=== PATIENT | female | born 1970 | race Two or more races ===

== ENCOUNTER 2025-01-11 09:48 | Outpatient (AMB) | payer MEDICAID, SELFPAY ==
--- NOTE | 2025-01-11 10:27 | XR_ITS ---
Examination: Bilateral knees 2 views Right lateral knee left lateral knee 2 views Bilateral axial knees single view TECHNIQUE: Bilateral AP knees standing single view, bilateral PA knees standing single view flexion Standing right lateral knee left lateral knee 2 views Bilateral axial knees single view total 5 views Date and time: January 11, 2025 10:40 AM INDICATIONS: Bilateral knee pain 3 months FINDINGS: Moderate osteopenia Severe narrowing, [id number] medial joint spaces bilaterally Bilateral moderate to advanced osteoarthritis patellofemoral joints No fractures IMPRESSION: Severe narrowing [id number] medial joint spaces bilaterally
--- NOTE | 2025-01-11 10:28 | ORTHONT_ITS ---
Vital signs 01/11/25 10:29 Height 1.63 m Height Method Stated Weight 77.734 kg Weight Measurement Method Standing Scale BMI 29.4 BP 129/85 H Blood Pressure Source Automatic Cuff Blood Pressure Location Left Upper Arm Position Sitting Respiration 18 Pulse 63 Pulse Source Monitor Temp 97.4 F Temp Source Temporal Artery Scan Pulse Oximetry (%) 96 Oxygen Delivery Method Room Air Med/Allergies Allergies & Medications Allergies No Known Allergies Allergy (Verified 01/11/25 10:30) Medication Reconciliation alprazolam 0.5 mg tablet 0.5 mg PO BID PRN Anxiety 10/11/18 [History Confirmed 07/05/22] levothyroxine 88 mcg tablet 88 mcg PO QDAY 10/11/18 [History Confirmed 07/05/22] acetaminophen 500 mg tablet (Tylenol Extra Strength) 500 mg PO QID PRN Pain 04/27/22 [History Confirmed 07/05/22] ferrous sulfate 325 mg (65 mg iron) tablet (FeroSul) 325 mg PO QDAY 04/27/22 [History Confirmed 07/05/22] omeprazole 20 mg capsule,delayed release 20 mg PO QDAY 04/27/22 [History Confirmed 07/05/22] cyclobenzaprine 10 mg tablet 10 mg PO TID PRN muscle spasm #20 tabs 02/25/23 [Rx] naproxen 500 mg tablet,delayed release 500 mg PO BID PRN pain #20 tabs 02/25/23 [Rx] diclofenac sodium 1 % topical gel 2 g topical QID 01/11/25 [History Confirmed 01/11/25] Exam Exam Patient is in no acute distress and is cooperative with the examination today. Breathing is nonlabored. In no respiratory distress. Bilateral extremities were evaluated and demonstrates sensation intact to light touch. Palpable pedal pulses are present. No significant edema is present. Bilateral hips were examined. The patient has no pain with log roll of the hips. Internal rotation to 30 degrees and external rotation to 30 degrees is painless. Negative FADIR. The left knee was examined. The left knee is in varus alignment. Range of motion from 0-115 degrees. Knee is stable to varus and valgus as well as AP translation with <5mm. Patient has a negative McMurrays. There is no pain with patellofemoral compression and no crepitus noted. The knee is tender to palpation medially. The right knee was also examined. The right knee is in varus alignment. Range of motion from 0-120 degrees. Knee is stable to varus and valgus as well as AP translation with <5mm. Patient has a negative McMurrays. There is no pain with patellofemoral compression and no crepitus noted. The knee is tender to palpation medially. I have an x-ray report from [facility] which says that there is mild to moderate arthritis. These are nonweightbearing films Assessment and Plan Problem List (1) Degenerative arthritis of knee, bilateral: Status: Acute Plan: Patient is a 54-year-old female with bilateral knee pain. She has no weightbearing x-rays. Will get weightbearing x-rays and she is on the anti-inflammatory already. She has tried some conservative treatment. We will see how she does with physical therapy. Will see her back for x-ray results Office Procedures GNS Level of Care Nursing/Assessment Patient Status: Initial/New Patient Nursing Assessment/Reassesment: Medication Reconciliation, Update PMH in EMR and Vital Signs Coordination of Care: Complex Care and Chronic Disease 1-5, Education Complex Pt/Fam, Consent,records obtained, informed consent, 1 Ins Authorization, Lab and Imaging orders, Results/Orders obtained and Staff clarify orders Special Needs: Language special needs New Patient Charge New Patient Point Assignment: 1124 New Patient Point Charge: COTTON TIER Level 4 ([id number]) MA Intake Visit Data Collection New Patient or Established: New Patient (never been to [facility]) Reason for Visit:: OA BL KNEE Seen by Clinical Staff ONLY (RN/MA): No Pharmacovigilance Safety Expert Required: Yes PCP or OBGYN visit in last 3 months: Yes Hx Now: No Do You Feel Safe at Home: Yes Authorities Contacted: N/A Questionairres Past Medical History Past Medical History Have you ever been diagnosed with any of the following: Neurological Problems Seizures: No Cardiology Problems Congestive Heart Failure: No Edema: No Cellulitis: No Hypertension: Yes Varicose Veins: Yes Respiratory Problems Chronic Obstructive Pulmonary Disease (COPD): No Asthma: No Pneumonia: No Tuberculosis: No Sleep Apnea: No Smoking: No Smoking Exposure: No Stomache/Intestinal Problems Hepatitis: No Gall Bladder Disease: No Gastroesophageal Reflux Disease: Yes Genital/Urinary Problems Renal Disease: No Kidney Stones: Yes Reproductive Problems Previous Pregnancies: Yes Endocrine Problems Diabetes Mellitus Type 1: No Diabetes Mellitus Type 2: No Hypothyroidism: Yes Blood Problems Anemia: Yes Sickle Cell Disease: No Psychologic Problems Bipolar Disorder: No Depression: Yes Anxiety: Yes Depression: Yes Other Problems Hospitalization: No Shingles: No Falls: No Blood Transfusions: No Blood Transfusion Reaction: No Anesthesia Reactions: No Organ Transplant: No Chemotherapy: No Radiation Therapy: No Hyperbaric Therapy: No MRSA: No Chicken Pox: Yes Measles: No Mumps: No Clostridium Difficile: No Cancer: No Surgical History Pacemaker: No Subjective Visit Visit for: new patient and knee Immunization / Flu Flu Vaccine in the Last 12 Months: Yes Flu Vaccine Exclusion Criteria: Already Received History of Present Illness Chief complaint: bl knee pain Patient is a pleasant 54-year-old female with bilateral knee pain. This been ongoing for several years. She has tried gel injections, anti-inflammatories including naproxen, and cortisone injections. She is about to start physical therapy in 4 days. Pain Pain level (0-10): 6 Pain duration: ALL DAY Pain location: inside (medial), outside (lateral), anterior and posterior Pain quality: sharp, dull and aching Pain timing: night, increases with activity and stairs Associated signs & symptoms: weakness Ambulatory data Ambulatory device: none Treatments Number of previous injections: 1 Improvement with previous injections: No Improvement with PT: No Improvement with NSAIDS: no Review of Systems Review of Systems: All systems negative unless otherwise noted in HPI.
[2025-01-11 10:29] VITALS: BP 129/85; PULSE 63; RESP 18; TEMP 36.3; O2SAT 96; BMI 29.4
== END 2025-01-11 10:32 | disposition home or self-care (01) ==
PROVIDERS: PCP Nurse Practitioner Family; Referring Provider Nurse Practitioner Family; Supervising Provider Orthopaedic Surgery Adult Reconstructive Orthopaedic Surgery; Visit Provider Orthopaedic Surgery Adult Reconstructive Orthopaedic Surgery
DX: M17.0 Bilateral primary osteoarthritis of knee (principal); M25.562 Pain in left knee; M25.561 Pain in right knee; I10 Essential (primary) hypertension; K21.9 Gastro-esophageal reflux disease without esophagitis; E03.9 Hypothyroidism, unspecified
CPT/HCPCS: 73564; 99204; G0463

== ENCOUNTER 2025-01-15 14:54 | Outpatient (RCR) | payer MEDICAID, SELFPAY ==
--- NOTE | 2025-01-15 15:29 | PT.OIERPT ---
PT OP Initial Eval Patient Information Outpatient Physical Therapy Treatment Date: 01/15/25 Visit Reasons: Pain in knee Medical Diagnosis: M17.9 Start of Care: 01/15/25 Date of Onset: 3 months ago Smoking Status Smoking Status: Never smoker Initial Assessment Subjective: Pt is 54 yr old cymro speaking female who reports intense B knee pain x3 months. The pain is constant and limits walking, squatting, stair and HH chore tolerances. Imaging: B standing knee Xray in EMR Severe narrowing [id number] medial joint spaces bilaterally Objective: B knee AROM: Flexion: 125 deg Extension : full SLR: 40 deg B Michael's: negative B Gait: antalgic Assessment: Pt presentation consistent with Xray that shows severe OA bone on bone of medial joint spaces. Pt not likely to benefit from skilled therapy to meet goals and has poor rehab potential. She will likely have more pain during and after therapy visits. Short Term and Senior Living Goals Eval and D/C Treatment Plan Eval and D/C Certification Dates: 01/15/25 to 01/20/25 Procedure Charges OP PT Eval Mod Complex 30 minutes: Yes
== END 2025-01-26 23:59 | disposition home or self-care (01) ==
LOC: CPTX 14:54
PROVIDERS: PCP Nurse Practitioner Family; Referring Provider Nurse Practitioner Family; Visit Provider Nurse Practitioner Family
DX: M25.562 Pain in left knee (principal); M25.561 Pain in right knee; R26.2 Difficulty in walking, not elsewhere classified; M17.0 Bilateral primary osteoarthritis of knee
CPT/HCPCS: 97162

== ENCOUNTER 2025-01-24 14:29 | Outpatient (AMB) | payer MEDICAID, SELFPAY ==
[2025-01-24 14:57] VITALS: BP 130/86; PULSE 59; RESP 17; TEMP 36; O2SAT 100; BMI 29.4
--- NOTE | 2025-01-24 14:57 | ORTHONT_ITS ---
Vital signs 01/24/25 14:57 Height 1.63 m Height Method Stated Weight 78.188 kg Weight Measurement Method Standing Scale BMI 29.4 BP 130/86 H Blood Pressure Source Automatic Cuff Blood Pressure Location Left Upper Arm Position Sitting Respiration 17 Pulse 59 L Pulse Source Monitor Temp 96.8 F Temp Source Temporal Artery Scan Pulse Oximetry (%) 100 Oxygen Delivery Method Room Air Med/Allergies Allergies & Medications Allergies No Known Allergies Allergy (Verified 01/24/25 14:58) Medication Reconciliation alprazolam 0.5 mg tablet 0.5 mg PO BID PRN Anxiety 10/11/18 [History Confirmed 01/24/25] levothyroxine 88 mcg tablet 88 mcg PO QDAY 10/11/18 [History Confirmed 01/24/25] acetaminophen 500 mg tablet (Tylenol Extra Strength) 500 mg PO QID PRN Pain 04/27/22 [History Confirmed 01/24/25] ferrous sulfate 325 mg (65 mg iron) tablet (FeroSul) 325 mg PO QDAY 04/27/22 [History Confirmed 01/24/25] omeprazole 20 mg capsule,delayed release 20 mg PO QDAY 04/27/22 [History Confirmed 01/24/25] cyclobenzaprine 10 mg tablet 10 mg PO TID PRN muscle spasm #20 tabs 02/25/23 [Rx Confirmed 01/24/25] naproxen 500 mg tablet,delayed release 500 mg PO BID PRN pain #20 tabs 02/25/23 [Rx Confirmed 01/24/25] diclofenac sodium 1 % topical gel 2 g topical QID 01/11/25 [History Confirmed 01/24/25] Exam Exam Patient is in no acute distress and is cooperative with the examination today. Breathing is nonlabored. In no respiratory distress. Bilateral extremities were evaluated and demonstrates sensation intact to light touch. Palpable pedal pulses are present. No significant edema is present. Bilateral hips were examined. The patient has no pain with log roll of the hips. Internal rotation to 30 degrees and external rotation to 30 degrees is painless. Negative FADIR. The left knee was examined. The left knee is in varus alignment. Range of motion from 0-115 degrees. Knee is stable to varus and valgus as well as AP translation with <5mm. Patient has a negative McMurrays. There is no pain with patellofemoral compression and no crepitus noted. The knee is tender to palpation medially. The right knee was also examined. The right knee is in varus alignment. Range of motion from 0-120 degrees. Knee is stable to varus and valgus as well as AP translation with <5mm. Patient has a negative McMurrays. There is no pain with patellofemoral compression and no crepitus noted. The knee is tender to palpation medially. Xrays demonstrate complete joint space narrowing bilaterally. There is significant varus deformity on the xrays from 01/11/2025 Assessment and Plan Problem List (1) Degenerative arthritis of knee, bilateral: Status: Acute Plan: Patient is a 54-year-old female with bilateral knee pain that is of approximately equal severity. She has tried significant conservative treatment at this point including pt, nsaids, and gel injections. We thus discussed total knee replacement as a reasonable option and we would start on the left. The nature and purpose of the total knee replacement, alternative method(s) of treatment, the material risks involved, and the possibility of complications were fully explained to the patient. The patient does NOT have any of the following contraindications to TKA: - Active infection of the knee joint, OR - Active systemic bacteremia, OR - Active skin infection or open wound at surgical site, OR - Neuropathic arthritis, OR - Severe, rapidly progressive neurological disease, OR - Severe medical condition that makes risks of surgery outweigh the potential benefit The patient was told the most common risks and complications associated with a total knee replacement include, but are not limited to: blood clots in the leg, fatal pulmonary embolism, dislocation of the prosthesis, intraoperative and postoperative fractures of the femur or tibia, infection, failure of the prosthesis or grafting materials, complications from anesthesia, reactions to blood transfusions, postoperative leg length inequality, instability of the knee replacement, nerve damage or injury, vascular injury, delayed wound healing, infection, other injury or even . In addition, there are risks associated with anesthesia given during this operation. Also, the patient was told that after undergoing a total knee replacement there may still be persistent pain or disability. The patient was informed that the success of this operation in part depends upon the mechanical devices which are going to be implanted and that these devices can fail or malfunction, and may need to be repaired or replaced and there are no guarantees as to the longevity of this device or its parts and that it or its parts could fail prematurely. The patient was also notified that during the course of surgery, there may be a need to use bone graft from donors, and that any bone graft used will be carefully screened for communicable diseases, including AIDS, hepatitis, Rosendo-Creutzfeldt, or other diseases, but despite the screening procedures, th ere is a small chance that they could contract one of these diseases. Finally, the patient was asked to follow completely and fully with all advice and recommended treatments, and that recovery and ultimate outcome are affected by their compliance with recommended treatment. We discussed the risks, benefits and treatment alternatives, and the patient is interested in proceeding with surgery. We will try to set this up as expeditiously as possible. Office Procedures GNS Level of Care Nursing/Assessment Patient Status: Established Patient Nursing Assessment/Reassesment: Medication Reconciliation, Update PMH in EMR and Vital Signs Coordination of Care: Complex Care and Chronic Disease 1-5, Education Complex Pt/Fam, Consent,records obtained, informed consent, Results/Orders obtained and Staff clarify orders Special Needs: Language special needs (CHINESE ) Established Patient Charge Established Patient Point Assignment: 95 Established Patient Point Charge: EP Level 3 (80-115) MA Intake Visit Data Collection New Patient or Established: Established Patient (seen at [facility] within 3 years) Reason for Visit:: FU BILAT KNEE XRAY RESULT Seen by Clinical Staff ONLY (RN/MA): No Portfolio Administrator Required: Yes PCP or OBGYN visit in last 3 months: Yes Hx Now: No Do You Feel Safe at Home: Yes Authorities Contacted: N/A Questionairres Past Medical History Past Medical History Have you ever been diagnosed with any of the following: Neurological Problems Seizures: No Cardiology Problems Congestive Heart Failure: No Edema: No Cellulitis: No Hypertension: Yes Varicose Veins: Yes Respiratory Problems Chronic Obstructive Pulmonary Disease (COPD): No Asthma: No Pneumonia: No Tuberculosis: No Sleep Apnea: No Smoking: No Smoking Exposure: No Stomache/Intestinal Problems Hepatitis: No Gall Bladder Disease: No Gastroesophageal Reflux Disease: Yes Genital/Urinary Problems Renal Disease: No Kidney Stones: Yes Reproductive Problems Previous Pregnancies: Yes Endocrine Problems Diabetes Mellitus Type 1: No Diabetes Mellitus Type 2: No Hypothyroidism: Yes Blood Problems Anemia: Yes Sickle Cell Disease: No Psychologic Problems Bipolar Disorder: No Depression: Yes Anxiety: Yes Depression: Yes Other Problems Hospitalization: No Shingles: No Falls: No Blood Transfusions: No Blood Transfusion Reaction: No Anesthesia Reactions: No Organ Transplant: No Chemotherapy: No Radiation Therapy: No Hyperbaric Therapy: No MRSA: No Chicken Pox: Yes Measles: No Mumps: No Clostridium Difficile: No Cancer: No Surgical History Pacemaker: No Subjective Visit Visit for: follow up visit and knee (BILATEAL KNEE XRAYS ) Immunization / Flu Flu Vaccine in the Last 12 Months: Yes Flu Vaccine Exclusion Criteria: Already Received History of Present Illness Chief complaint: bl knee pain Patient is a pleasant 54-year-old female with bilateral knee pain. This been ongoing for several years. She has tried gel injections, anti-inflammatories including naproxen, and cortisone injections. She has tried PT and reports significant knee pain bilaterally. Personal History Red flag PMH: none Pain Pain level (0-10): 8 Pain duration: 3 MONTHS Pain location: anterior Pain quality: sharp, shocking, electric and tingling Pain timing: night and increases with activity Associated signs & symptoms: weakness and stiffness Ambulatory data Ambulatory device: none Walking distance (minutes): 1 Treatments Number of previous injections: 1 Improvement with previous injections: No Number of Physical Therapy sessions: 0 Improvement with PT: No Improvement with NSAIDS: n/a Review of Systems Review of Systems: All systems negative unless otherwise noted in HPI.
== END 2025-01-24 15:25 | disposition home or self-care (01) ==
LOC: HODSRG 14:29
PROVIDERS: PCP Nurse Practitioner Family; Referring Provider Nurse Practitioner Family; Supervising Provider Orthopaedic Surgery Adult Reconstructive Orthopaedic Surgery; Visit Provider Orthopaedic Surgery Adult Reconstructive Orthopaedic Surgery
DX: M17.0 Bilateral primary osteoarthritis of knee (principal)
CPT/HCPCS: 99213; G0463

== ENCOUNTER → 2025-02-20 | Outpatient (CLI) | payer MEDICAID, SELFPAY ==
--- NOTE | 2025-02-20 09:30 | XR_ITS ---
Examination: CT left lower extremity, without contrast. 2-D sagittal reconstructions. 2-D coronal reconstructions. 3-D reconstructions. Date and time of exam:February 20, 2025 1034 hours INDICATIONS: Diagnosis unilateral left knee osteoarthritis left knee pain 3 months CTDI: vol (mGy):10.8 DLP: (mGycm):798 Technique: Multiple 1.25 mm axial sections of the left lower extremity without intravenous contrast have been obtained. 2-D sagittal and coronal reconstructions have been obtained. 3-D reconstructions have been obtained. Low dose protocols were performed. One or more of the following dose reduction techniques were used; automated exposure control, adjustment of the mA and/or KV according to patient size, use of iterative reconstruction technique. Findings: Moderate osteopenia Mild to moderate narrowing left hip joint No left hip fracture or dislocation No avascular necrosis Severe narrowing medial joint space left knee with subarticular sclerosis and osteophyte formation Significant osteoarthritis lateral joint space No fracture IMPRESSION: Severe narrowing medial joint space left knee
== END | disposition home or self-care (01) ==
LOC: CCTX 08:55
PROVIDERS: PCP Nurse Practitioner Family; Referring Provider Orthopaedic Surgery Adult Reconstructive Orthopaedic Surgery; Visit Provider Orthopaedic Surgery Adult Reconstructive Orthopaedic Surgery
DX: M25.862 Other specified joint disorders, left knee (principal)
CPT/HCPCS: 73700

== ENCOUNTER 2025-02-21 14:16 | Outpatient (AMB) | payer MEDICAID, SELFPAY ==
[2025-02-21 14:32] VITALS: BP 128/78; PULSE 72; RESP 17; TEMP 36.8; O2SAT 95; BMI 28.3
--- NOTE | 2025-02-21 14:32 | PD.ORTHCLVIS ---
Vital signs 02/21/25 14:32 Height 1.63 m Height Method Stated Weight 75.296 kg Weight Measurement Method Standing Scale BMI 28.3 BP 128/78 Blood Pressure Source Automatic Cuff Blood Pressure Location Left Upper Arm Position Sitting Respiration 17 Pulse 72 Pulse Source Monitor Temp 98.3 F Temp Source Temporal Artery Scan Pulse Oximetry (%) 95 Oxygen Delivery Method Room Air Med/Allergies Allergies & Medications Allergies No Known Allergies Allergy (Verified 02/21/25 14:32) Medication Reconciliation alprazolam 0.5 mg tablet 0.5 mg PO BID PRN Anxiety 10/11/18 [History Confirmed 02/21/25] levothyroxine 88 mcg tablet 88 mcg PO QDAY 10/11/18 [History Confirmed 02/21/25] acetaminophen 500 mg tablet (Tylenol Extra Strength) 500 mg PO QID PRN Pain 04/27/22 [History Confirmed 02/21/25] ferrous sulfate 325 mg (65 mg iron) tablet (FeroSul) 325 mg PO QDAY 04/27/22 [History Confirmed 02/21/25] omeprazole 20 mg capsule,delayed release 20 mg PO QDAY 04/27/22 [History Confirmed 02/21/25] cyclobenzaprine 10 mg tablet 10 mg PO TID PRN muscle spasm #20 tabs 02/25/23 [Rx Confirmed 02/21/25] naproxen 500 mg tablet,delayed release 500 mg PO BID PRN pain #20 tabs 02/25/23 [Rx Confirmed 02/21/25] diclofenac sodium 1 % topical gel 2 g topical QID 01/11/25 [History Confirmed 02/21/25] Exam Exam Patient is in no acute distress and is cooperative with the examination today. Breathing is nonlabored. In no respiratory distress. Bilateral extremities were evaluated and demonstrates sensation intact to light touch. Palpable pedal pulses are present. No significant edema is present. Bilateral hips were examined. The patient has no pain with log roll of the hips. Internal rotation to 30 degrees and external rotation to 30 degrees is painless. Negative FADIR. The left knee was examined. The left knee is in varus alignment. Range of motion from 0-115 degrees. Knee is stable to varus and valgus as well as AP translation with <5mm. Patient has a negative McMurrays. There is no pain with patellofemoral compression and no crepitus noted. The knee is tender to palpation medially. The right knee was also examined. The right knee is in varus alignment. Range of motion from 0-120 degrees. Knee is stable to varus and valgus as well as AP translation with <5mm. Patient has a negative McMurrays. There is no pain with patellofemoral compression and no crepitus noted. The knee is tender to palpation medially. Xrays demonstrate complete joint space narrowing bilaterally. There is significant varus deformity on the xrays from 01/11/2025 Assessment and Plan Problem List (1) Degenerative arthritis of knee, bilateral: Status: Acute Plan: Patient is a 54-year-old female with bilateral knee pain that is of approximately equal severity. She has tried significant conservative treatment at this point including pt, nsaids, and gel injections. We thus discussed total knee replacement as a reasonable option and we would start on the left. The nature and purpose of the total knee replacement, alternative method(s) of treatment, the material risks involved, and the possibility of complications were fully explained to the patient. The patient does NOT have any of the following contraindications to TKA: - Active infection of the knee joint, OR - Active systemic bacteremia, OR - Active skin infection or open wound at surgical site, OR - Neuropathic arthritis, OR - Severe, rapidly progressive neurological disease, OR - Severe medical condition that makes risks of surgery outweigh the potential benefit The patient was told the most common risks and complications associated with a total knee replacement include, but are not limited to: blood clots in the leg, fatal pulmonary embolism, dislocation of the prosthesis, intraoperative and postoperative fractures of the femur or tibia, infection, failure of the prosthesis or grafting materials, complications from anesthesia, reactions to blood transfusions, postoperative leg length inequality, instability of the knee replacement, nerve damage or injury, vascular injury, delayed wound healing, infection, other injury or even . In addition, there are risks associated with anesthesia given during this operation. Also, the patient was told that after undergoing a total knee replacement there may still be persistent pain or disability. The patient was informed that the success of this operation in part depends upon the mechanical devices which are going to be implanted and that these devices can fail or malfunction, and may need to be repaired or replaced and there are no guarantees as to the longevity of this device or its parts and that it or its parts could fail prematurely. The patient was also notified that during the course of surgery, there may be a need to use bone graft from donors, and that any bone graft used will be carefully screened for communicable diseases, including AIDS, hepatitis, Rosendo-Creutzfeldt, or other diseases, but despite the screening procedures, there is a small chance that they could contract one of these diseases. Finally, the patient was asked to follow completely and fully with all advice and recommended treatments, and that recovery and ultimate outcome are affected by their compliance with recommended treatment. We discussed the risks, benefits and treatment alternatives, and the patient is interested in proceeding with surgery. We will try to set this up as expeditiously as possible. Office Procedures GNS Level of Care Nursing/Assessment Patient Status: Established Patient Nursing Assessment/Reassesment: Medication Reconciliation, Update PMH in EMR and Vital Signs Coordination of Care: Complex Care and Chronic Disease 1-5, Education Complex Pt/Fam, Consent,records obtained, informed consent, Results/Orders obtained and Staff clarify orders Special Needs: Language special needs (LUX[place] ) Established Patient Charge Established Patient Point Assignment: 95 Established Patient Point Charge: EP Level 3 (80-115) MA Intake Visit Data Collection New Patient or Established: Established Patient (seen at [facility] within 3 years) Reason for Visit:: PRE OP LEFT KNEE Seen by Clinical Staff ONLY (RN/MA): No Floor Layer Required: Yes PCP or OBGYN visit in last 3 months: Yes Hx Now: No Do You Feel Safe at Home: Yes Authorities Contacted: N/A Questionairres Past Medical History Past Medical History Have you ever been diagnosed with any of the following: Neurological Problems Seizures: No Cardiology Problems Congestive Heart Failure: No Edema: No Cellulitis: No Hypertension: Yes Varicose Veins: Yes Respiratory Problems Chronic Obstructive Pulmonary Disease (COPD): No Asthma: No Pneumonia: No Tuberculosis: No Sleep Apnea: No Smoking: No Smoking Exposure: No Stomache/Intestinal Problems Hepatitis: No Gall Bladder Disease: No Gastroesophageal Reflux Disease: Yes Genital/Urinary Problems Renal Disease: No Kidney Stones: Yes Reproductive Problems Previous Pregnancies: Yes Endocrine Problems Diabetes Mellitus Type 1: No Diabetes Mellitus Type 2: No Hypothyroidism: Yes Blood Problems Anemia: Yes Sickle Cell Disease: No Psychologic Problems Bipolar Disorder: No Depression: Yes Anxiety: Yes Depression: Yes Other Problems Hospitalization: No Shingles: No Falls: No Blood Transfusions: No Blood Transfusion Reaction: No Anesthesia Reactions: No Organ Transplant: No Chemotherapy: No Radiation Therapy: No Hyperbaric Therapy: No MRSA: No Chicken Pox: Yes Measles: No Mumps: No Clostridium Difficile: No Cancer: No Surgical History Pacemaker: No Subjective Visit Visit for: follow up visit and knee (LEFT KNEE ) Immunization / Flu Flu Vaccine in the Last 12 Months: Yes Flu Vaccine Exclusion Criteria: Already Received History of Present Illness Chief complaint: bl knee pain Patient is a pleasant 54-year-old female with bilateral knee pain. This been ongoing for several years. She has tried gel injections, anti-inflammatories including naproxen, and cortisone injections. She has tried PT and reports significant knee pain bilaterally. Personal History Red flag PMH: none Pain Pain level (0-10): 8 Pain duration: 3 MONTHS Pain location: anterior Pain quality: sharp and other (specify) (SWELLING) Pain timing: increases with activity Associated signs & symptoms: numbness, weakness and stiffness Ambulatory data Ambulatory device: none Walking distance (minutes): 1 Treatments Number of previous injections: 1 Improvement with previous injections: No Number of Physical Therapy sessions: 0 Improvement with PT: No Improvement with NSAIDS: n/a Review of Systems Review of Systems: All systems negative unless otherwise noted in HPI.
== END 2025-02-21 14:51 | disposition home or self-care (01) ==
PROVIDERS: PCP Nurse Practitioner Family; Referring Provider Nurse Practitioner Family; Supervising Provider Orthopaedic Surgery Adult Reconstructive Orthopaedic Surgery; Visit Provider Orthopaedic Surgery Adult Reconstructive Orthopaedic Surgery
DX: M17.0 Bilateral primary osteoarthritis of knee (principal); M25.562 Pain in left knee; M25.561 Pain in right knee; I10 Essential (primary) hypertension; K21.9 Gastro-esophageal reflux disease without esophagitis; E03.9 Hypothyroidism, unspecified
CPT/HCPCS: 99213; G0463

== ENCOUNTER 2025-02-25 08:10 | Day surgery (SDC) | payer MEDICAID, SELFPAY ==
--- NOTE | 2025-02-22 06:00 | EKG_ITS ---
[facility] Test Date: 2025-02-22 Pat Name: MAIKEL Carrpartment: Room: - Gender: Female Tiler: [facility] : 1970 Requested By: Mateus Singh Order Number: [id number] Reading MD: Mateus Singh Measurements Intervals [place] Rate: 69 P: 51 SC: 192 QRS: 0 QRSD: 98 T: 61 QT: 408 QTc: 439 Interpretive Statements SINUS RHYTHM NONSPECIFIC T-WAVE ABNORMALITY Compared to ECG 02/25/2023 19:27:29 T-wave abnormality now present /store/S0/[id number]/ecg/[id number].pdf
[2025-02-22 08:04] VITALS: BMI 30.1
[2025-02-22 08:58] LABS: Basophils % (Auto) 1 % (0-2.5); Eosinophils # (Auto) 0.1 Thou/mm3 (0.0-0.5); Eosinophils % (Auto) 2 % (0-10); Hematocrit 38.6 % (36.0-46.0); Hemoglobin 12.9 g/dL (12.0-16.0); Immature Granulocytes % (Auto) 0 % (0-0); Immature Granulocytes Auto 0.02 Thou/mm3 (0.00-0.00); Lymphocytes # (Auto) 1.9 Thou/mm3 (1.0-4.8); Lymphocytes % (Auto) 32 % (10-50); Mean Corpuscular HGB Conc 33.4 g/dl (31.0-37.0); Mean Corpuscular Hemoglobin 30.4 pg (25.0-35.0); Mean Corpuscular Volume 91 fL (80-100); Monocytes # (Auto) 0.5 Thou/mm3 (0.0-0.8); Monocytes % (Auto) 9 % (0-12); Neutrophils # (Auto) 3.4 Thou/mm3 (1.8-7.7); Neutrophils % (Auto) 56 % (37-80); Nucleated Red Blood Cell % 0 /100 WBC (0); Platelet Count 272 Thou/mm3 (140-440); RDW Standard Deviation 41.2 fL (36.4-46.3); Red Blood Count 4.24 Miln/mm3 (4.00-5.20)
[2025-02-22 09:14] LABS: Alanine Aminotransferase 25 U/L (10-49); Alkaline Phosphatase 77 U/L (46-116); Anion Gap 8 (7-16); Aspartate Amino Transferase 22 U/L (0-34); BUN/Creatinine Ratio 11 Ratio (12-20); Bilirubin,Total 0.7 mg/dL (0.3-1.2); Blood Urea Nitrogen 8 mg/dL (9-23); Calcium 8.8 mg/dL (8.3-10.6); Calcium (Corrected) 8.8 mg/dL (8.5-10.1); Carbon Dioxide 27.9 mMol/L (20.0-31.0); Chloride 104 mMol/L (98-107); Creatinine (Component) 0.7 mg/dL (0.6-1.3); Estimated Creatinine Clearance 89.3 mL/min (>60); Glucose 126 mg/dL (74-106); Osmolality,Calculated 279 (275-295); Potassium 3.7 mMol/L (3.4-5.1); Sodium 140 mMol/L (136-145); eGFR > 60 See Note
[2025-02-22 09:16] LABS: Partial Thromboplastin Time 29.1 Seconds (22.0-36.0); Prothrombin Time 10.9 Seconds (9.0-12.2)
[2025-02-25] VITALS (20 sets, daily range): BP systolic 121–150; BP diastolic 75–99; PULSE 64–94; RESP 12–20; TEMP 36.3–36.9; O2SAT 95–100; BMI 28.9
--- NOTE | 2025-02-25 09:10 | SUR.PREOP ---
Patient expressed gratitude for prayer before their procedure.
[2025-02-25] MEDS: PREGABALIN 75 MG CAPSULE PO (09:24)
[2025-02-25] MEDS: ACETAMINOPHEN 325 MG TABLET 650 MG PO (09:24)
[2025-02-25] MEDS: MELOXICAM 7.5 MG TABLET PO (09:24)
[2025-02-25] MEDS: RINGERS LACTATED 1000 ML 1,000 ML 20 ML IV (09:28)
--- NOTE | 2025-02-25 12:11 | ESOP_ITS ---
Date of Procedure 02/25/25 Pre Op Diagnosis left knee osteoarthritis Post Op Diagnosis left knee osteoarthritis Procedure left total knee replacement bridget Findings full thickness cartilage loss and osteophytes Procedure Description Indication: The patient is a [67] year old who has a long history of left knee pain. X-rays show degenerative arthritis involving the knee. Over the past several years the patient has had increasing pain, progressive limitation in function. He has failed conservative measures including activity modification, physical therapy, injections, anti-inflammatories, and assistive devices. After a lengthy discussion of the risks and benefits, the patient presents now for total knee replacement. The nature and purpose of the total knee replacement, alternative method(s) of treatment, the material risks involved, and the possibility of complications were fully explained to the patient. The patient was told the most common risks and complications associated with a total knee replacement include, but are not limited to blood clots in the leg, fatal pulmonary embolism, dislocation of the prosthesis, intraoperative and postoperative fractures of the femur or tibia, infection, failure of the prosthesis or grafting materials, complications from anesthesia, reactions to blood transfusions, postoperative leg length inequality, instability of the knee replacement, nerve damage or injury, vascular injury, delayed wound healing, infections, other injury or even . In addition, there are risks associated with anesthesia given during this operation, temporary or permanent numbness on the skin lateral to the incision can be a complication unique to total knee surgery, and kneeling can be painful after knee replacement surgery. Also, the patient was told that after undergoing a total knee replacement there may still be pain or disability. We discussed with the patient that we will be using a robot-assisted technology. We discussed that there is a possibility of converting to manual instrumentation. The patient was informed that the success of this operation in part depends upon the mechanical devices which are going to be implanted and that these devices can fail or malfunction, and may need to be repaired or replaced and there are no guarantees as to the longevity of this device or its part and that it or its parts could fail prematurely. Finally, the patient was asked to follow completely and fully with all advice and recommended treatments, and that recovery and ultimate outcome are affected by their compliance with recommended treatment. Surgical technique: Patient was marked and consented in the pre-operative area. The patient was brought to the operating room and placed on the operating table in a supine position. Prior to positioning, a timeout procedure was performed between the surgeon, the anesthesiologist, and the nursing staff where the patient and the operative side were identified and confirmed. After adequate general anesthetic was obtained, the left lower extremity was prepped and draped in the usual sterile fashion. A weight based dose of Cefazolin were administered within 1 hour prior to incision. The robot was preregistered and calirated before the incision. The extremity was exsanguinated with an esmarch badge and tourniquet inflated to 250mmHg. A midline incision was made. A median parapatellar arthrotomy was made. The patella was subluxed laterally. A medial release was performed to expose the medial tibia. His femoral and tibial pins were placed through an intra incisional manner for both cases. Every effort was made to ensure that the distalmost aspect of the pin was hung in the second cortex. The arrays were then tightened several times to ensure that it was fixed for the remainder of the case. Both femoral and tibial checkpoints were then placed. We then went through the registration process of the bone. We then assessed the knee deformity and attempted to correct it. We also used the robot to aid in judging laxity in both extension and flexion. Final based on laxity and alignment we changed the preoperative assessment to obtain proper proper implant positioning and to correct deformity. Attention was then placed to the tibia. We made a tibial cut using the robot ensuring that both the MCL and the patella tendon were protected with retractors. We then went to the femur and made the posterior cut followed by the anterior cut and the anterior chamfer. The bone was then removed and we made a distal femur cut and a posterior chamfer cut. We verified all cuts. A trial reduction was performed with a size 3 femoral component and a size 3 keeled tibial component. The patella tracked centrally, and no lateral retinacular release was necessary. The trial implants were removed. The arrays, pins, and checkpoints were all removed. We performed a verification that all pins were removed. The cut bone surfaces were lavaged. A size 3 left femoral component, a size 3 keeled tibial component were impacted into position. The knee was felt to be well balanced in the sagittal and coronal plane. The final 3x10 mm cruciate- substituting articular insert was impacted into the tibial tray. The knee was brought out to full extension, flexed up to 120 degrees. It was stable to varus and valgus stress and appropriately balanced in flexion and extension. The wounds were copiously irrigated following deflation of tourniquet. The medial retinaculum was reapproximated with #1 vicryl and quill. The subcutaneous tissues were closed with 0 and 2-0 interrupted Vicryl. The skin was closed with 3-0 Monofilament V loc suture. A sterile dressing was applied. The patient was transferred to a bed and brought to recovery in stable condition. The patient tolerated the procedure well. There were no intraoperative complications. Sponge and needle counts were correct times 2. As the attending surgeon, I rama I was present and performed the entire operation. Grafts/Implants Size 3 CR Femur Size 3 Tibia 10mm poly CS Anesthesia spinal Implants flex Pathology / specimen None Pathology comment: none Estimated Blood Loss 150 Surgeon Dano Rowley MD Surgical Staff Operation Date: 02/25/25 13:00 Case Staff Anesthesiologist: Jeff Grover RN First Assistant: Lauren Greene
--- NOTE | 2025-02-25 12:17 | XR_ITS ---
Examination: Left knee 2 views Technique one AP lateral left knee 2 views Date and time: February 25, 2025 1242 hours INDICATIONS: Postop knee replacement. FINDINGS: Total left knee arthroplasty. Satisfactory alignment Moderate osteopenia No fracture IMPRESSION: Total left knee arthroplasty with satisfactory alignment
--- NOTE | 2025-02-25 12:33 | SUR.PHASEI ---
1233 Patient arrived to recovery resting comfortably in [facility] on oxygen 6L via oxy mask, breathing unlabored, vital signs stable, dressing intact to left knee; prineo, telfa, abd, webril, sotero wraps; no bleeding noted, bilateral dorsalis pedis pulses present when palpated, patient has good circulation to left lower extremity; skin warm to touch and normal color for patient, post spinal anesthesia assessment via ice; patient has dermatome sensation at R66-bctqulral, will continue to monitor, report received from Dr. Grover and Savanna ROY/Amada ROY
--- NOTE | 2025-02-25 12:47 | SUR.PHASEI ---
1247 XRAY complete per MD order
--- NOTE | 2025-02-25 13:35 | SUR.PHASEII ---
1315 patients at bedside
--- NOTE | 2025-02-25 13:44 | SUR.PHASEII ---
patient eating jello and drinking apple juice tolerating well
--- NOTE | 2025-02-25 14:15 | SUR.PHASEII ---
[id number] Dr[address] Grover for Ofirmev 1gm via IV for pain- patient expresses she has a headache
[2025-02-25] MEDS: ACETAMINOPHEN IVPB 1,000 MG/100 ML VIAL 250 MG IV (14:21)
--- NOTE | 2025-02-25 14:34 | SUR.PHASEII ---
patient post spinal anesthesia complete patient has dermatome sensation at S2-perineum
--- NOTE | 2025-02-25 15:25 | SUR.PHASEII ---
1525 patient attempted to use the restroom, unable to void, will ambulate patient back to bed with physical therapy and encourage fluids and patient to eat a meal
--- NOTE | 2025-02-25 15:32 | SUR.PHASEII ---
1532 patient cleared by Physical therapy Jas to proceed with discharge
--- NOTE | 2025-02-25 16:29 | SUR.PHASEII ---
pt awake and alert, breathing unlabored on room air. v/s stable. pt dresing to left lower extremity cdi. report received from Rachelle Desouza Rn.
--- NOTE | 2025-02-25 16:29 | SUR.PHASEII ---
1540 Patient hooked up to Gogoyoko, unable to void, complaining of pain in her bladder [address] Rowley via telephone, no answer [address] Rowley via telephone, no answer [address] Grover via telephone patient unable to void, bladder scanned +999ml urine in bladder on scan, telephone order read-back to straight catheterize patient 1555 Dr. Rowley returned called, staff made him aware of patients condition and unable to void, and this writer producer was currently straight catheterizing patient 1603 750 drained from bladder, patient tolerated well, denies pain to her bladder 1605 Bladder scanned 545ml urine in bladder [address] Rowley via telephone, no answer 1613 Dr. Rowley made aware bladder drained 750ml via straight catheterize, bladder scan and 545ml urine remained in bladder, Dr. Rowley stated, Thats ok, patient just needs to void prior to discharge, given her an 1 1/2 and then call me 1620 Patient sitting up in bed with her son at bedside, eating a sandwich from the cafeteria 1629 Report given to Xavier ROY to assume care over patient
--- NOTE | 2025-02-25 18:00 | SUR.PHASEII ---
pt awake and alert, breathing unlabored on room air. v/s stable. pt dressing to left lower extremity cdi. pt cleared by physical therapist Chris. d/c instructions given by Rachelle Desouza Rn, pt confirmed all questions were answered. pt able to urinate prior to d/c. pt d/c via wheelchair with all belongings.
== END 2025-02-25 18:00 | disposition home or self-care (01) ==
PROVIDERS: Anesthesiology; PCP Nurse Practitioner Family; Referring Provider Orthopaedic Surgery Adult Reconstructive Orthopaedic Surgery; Visit Provider Orthopaedic Surgery Adult Reconstructive Orthopaedic Surgery
PROC: (CPT 27447; principal; 2025-02-25 12:45)
DX: M17.12 Unilateral primary osteoarthritis, left knee (principal); M25.762 Osteophyte, left knee; I10 Essential (primary) hypertension; E03.9 Hypothyroidism, unspecified; K21.9 Gastro-esophageal reflux disease without esophagitis; Z01.810 Encounter for preprocedural cardiovascular examination; Z79.890 Hormone replacement therapy; Z79.899 Other long term (current) drug therapy
CPT/HCPCS: 27447; 20985; 36415; 73560; 80053; 85025; 85610; 85730; 93005; 97163; A4217; C1713; C1776; J0131; J0690; J1100; J1885; J2250; J2405; J2704; J2795; J3010; J3490; J7120; J7999; A4648; A4649; A9270

== ENCOUNTER 2025-03-08 10:03 | Outpatient (AMB) | payer MEDICAID, SELFPAY ==
--- NOTE | 2025-03-08 10:30 | PD.ORTHCLVIS ---
Vital signs 03/08/25 10:36 Height 1.6 m Height Method Measured Weight 74.446 kg Weight Measurement Method Standing Scale BMI 29.0 BP 106/70 Blood Pressure Source Automatic Cuff Blood Pressure Location Right Upper Arm Position Sitting Respiration 16 Pulse 90 Pulse Source Monitor Temp 97.8 F Temp Source Temporal Artery Scan Pulse Oximetry (%) 95 Oxygen Delivery Method Room Air Med/Allergies Allergies & Medications Allergies No Known Allergies Allergy (Verified 03/08/25 10:48) Medication Reconciliation levothyroxine 88 mcg tablet 88 mcg PO QDAY 10/11/18 [History Confirmed 03/08/25] omeprazole 20 mg capsule,delayed release 20 mg PO QDAY 04/27/22 [History Confirmed 03/08/25] clonazepam 0.5 mg tablet 0.5 mg PO TID 02/22/25 [History Confirmed 03/08/25] estradiol 2 mg tablet 2 mg PO DAILY 02/22/25 [History Confirmed 03/08/25] ibuprofen 800 mg tablet 800 mg PO Q12H PRN pain 02/22/25 [History Confirmed 03/08/25] sertraline 25 mg tablet (Zoloft) 25 mg PO QDAY 02/22/25 [History Confirmed 03/08/25] acetaminophen 500 mg tablet (Acetaminophen Extra Strength) 1,000 mg (2 x 500 mg) PO Q6H PRN pain #90 tabs 02/25/25 [Rx Confirmed 03/08/25] aspirin 81 mg tablet,delayed release 81 mg PO BID #60 tabs 02/25/25 [Rx Confirmed 03/08/25] doxycycline hyclate 100 mg tablet 100 mg PO BID #14 tabs 02/25/25 [Rx Confirmed 03/08/25] gabapentin 300 mg capsule 300 mg PO .qhs #30 caps 02/25/25 [Rx Confirmed 03/08/25] oxycodone 5 mg tablet 5 mg PO Q6H PRN pain #28 tabs 02/25/25 [Rx Confirmed 03/08/25] sennosides 8.6 mg-docusate sodium 50 mg tablet (Senna-S) 1 tab-cap PO QDAY #30 tabs 02/25/25 [Rx Confirmed 03/08/25] diphenhydramine HCl 25 mg tablet (Allergy (diphenhydramine)) 25 mg PO TID PRN itching #30 tabs 07/07/25 [Rx Confirmed 03/08/25] oxycodone 5 mg tablet 5 mg PO Q6H PRN pain #28 tabs 03/12/25 [Rx] Exam Exam Patient is in no acute distress and is cooperative with the examination today. Breathing is nonlabored. In no respiratory distress. Bilateral extremities were evaluated and demonstrates sensation intact to light touch. Palpable pedal pulses are present. No significant edema is present. Bilateral hips were examined. The patient has no pain with log roll of the hips. Internal rotation to 30 degrees and external rotation to 30 degrees is painless. Negative FADIR. The left knee was examined. Left knee incision is c/d/i. ROM is 0-95 degrees. She had a rash that resolved when she removedf the prineo dressing. There is no sign of a rash at this time The right knee was also examined. The right knee is in varus alignment. Range of motion from 0-120 degrees. Knee is stable to varus and valgus as well as AP translation with <5mm. Patient has a negative McMurrays. There is no pain with patellofemoral compression and no crepitus noted. The knee is tender to palpation medially. Assessment and Plan Problem List (1) Rash: (2) Degenerative arthritis of knee, bilateral: Status: Acute Plan: Patient is a 54-year-old female with bilateral knee pain that is of approximately equal severity. She is doing well s/p L TKA. She is doing well s/p L TKA and we will see her in approximately 4 weeks for routine followup Questionairres Past Medical History Past Medical History Have you ever been diagnosed with any of the following: Neurological Problems Seizures: No Cardiology Problems Hypercholesterolemia: Yes Congestive Heart Failure: No Edema: No Cellulitis: No Hypertension: Yes Varicose Veins: Yes Respiratory Problems Chronic Obstructive Pulmonary Disease (COPD): No Asthma: No Pneumonia: No Tuberculosis: No Sleep Apnea: No Smoking: No Smoking Exposure: No Stomache/Intestinal Problems Hepatitis: No Gall Bladder Disease: No Gastroesophageal Reflux Disease: Yes Genital/Urinary Problems Renal Disease: No Kidney Stones: Yes Reproductive Problems Previous Pregnancies: Yes Musculoskeletal Problems Arthritis: Yes Endocrine Problems Diabetes Mellitus Type 1: No Diabetes Mellitus Type 2: No Hypothyroidism: Yes Blood Problems Anemia: Yes Sickle Cell Disease: No Psychologic Problems Bipolar Disorder: No Depression: Yes Anxiety: Yes Depression: Yes Other Problems Hospitalization: No Shingles: No Falls: No Blood Transfusions: No Blood Transfusion Reaction: No Anesthesia Reactions: No Organ Transplant: No Chemotherapy: No Radiation Therapy: No Hyperbaric Therapy: No MRSA: No Chicken Pox: Yes Measles: No Mumps: No Clostridium Difficile: No Cancer: No Surgical History Hysterectomy: Yes Pacemaker: No Subjective Immunization / Flu Flu Vaccine in the Last 12 Months: Yes Flu Vaccine Exclusion Criteria: Already Received History of Present Illness Chief complaint: left knee pain Patient is a 54 yo female who is 2 weeks s/p L TKA. She is doing well Review of Systems Review of Systems: All systems negative unless otherwise noted in HPI.
[2025-03-08 10:36] VITALS: BP 106/70; PULSE 90; RESP 16; TEMP 36.6; O2SAT 95; BMI 29.0
== END 2025-03-08 10:48 | disposition home or self-care (01) ==
LOC: HODSRG 10:03
PROVIDERS: PCP Nurse Practitioner Family; Referring Provider Nurse Practitioner Family; Supervising Provider Orthopaedic Surgery Adult Reconstructive Orthopaedic Surgery; Visit Provider Orthopaedic Surgery Adult Reconstructive Orthopaedic Surgery
DX: M17.0 Bilateral primary osteoarthritis of knee (principal); M25.562 Pain in left knee; M25.561 Pain in right knee; Z96.652 Presence of left artificial knee joint; I10 Essential (primary) hypertension; E78.00 Pure hypercholesterolemia, unspecified; K21.9 Gastro-esophageal reflux disease without esophagitis; E03.9 Hypothyroidism, unspecified
CPT/HCPCS: 99213; G0463

== ENCOUNTER 2025-04-16 13:35 | Outpatient (AMB) | payer MEDICAID, SELFPAY ==
--- NOTE | 2025-04-16 14:02 | PD.ORTHCLVIS ---
Vital signs 04/16/25 14:03 Height 1.6 m Height Method Measured Weight 74.417 kg Weight Measurement Method Standing Scale BMI 29.0 BP 117/77 Blood Pressure Source Automatic Cuff Blood Pressure Location Left Upper Arm Position Sitting Respiration 18 Pulse 60 Pulse Source Monitor Temp 97.6 F Temp Source Temporal Artery Scan Pulse Oximetry (%) 96 Oxygen Delivery Method Room Air Med/Allergies Allergies & Medications Allergies No Known Allergies Allergy (Verified 04/16/25 14:05) Medication Reconciliation levothyroxine 88 mcg tablet 88 mcg PO QDAY 10/11/18 [History Confirmed 04/16/25] omeprazole 20 mg capsule,delayed release 20 mg PO QDAY 04/27/22 [History Confirmed 04/16/25] clonazepam 0.5 mg tablet 0.5 mg PO TID 02/22/25 [History Confirmed 04/16/25] estradiol 2 mg tablet 2 mg PO DAILY 02/22/25 [History Confirmed 04/16/25] ibuprofen 800 mg tablet 800 mg PO Q12H PRN pain 02/22/25 [History Confirmed 04/16/25] sertraline 25 mg tablet (Zoloft) 25 mg PO QDAY 02/22/25 [History Confirmed 04/16/25] acetaminophen 500 mg tablet (Acetaminophen Extra Strength) 1,000 mg (2 x 500 mg) PO Q6H PRN pain #90 tabs 02/25/25 [Rx Confirmed 04/16/25] aspirin 81 mg tablet,delayed release 81 mg PO BID #60 tabs 02/25/25 [Rx Confirmed 04/16/25] doxycycline hyclate 100 mg tablet 100 mg PO BID #14 tabs 02/25/25 [Rx Confirmed 04/16/25] gabapentin 300 mg capsule 300 mg PO .qhs #30 caps 02/25/25 [Rx Confirmed 04/16/25] oxycodone 5 mg tablet 5 mg PO Q6H PRN pain #28 tabs 02/25/25 [Rx Confirmed 04/16/25] sennosides 8.6 mg-docusate sodium 50 mg tablet (Senna-S) 1 tab-cap PO QDAY #30 tabs 02/25/25 [Rx Confirmed 04/16/25] diphenhydramine HCl 25 mg tablet (Allergy (diphenhydramine)) 25 mg PO TID PRN itching #30 tabs 03/04/25 [Rx Confirmed 04/16/25] oxycodone 5 mg tablet 5 mg PO Q6H PRN pain #28 tabs 03/12/25 [Rx Confirmed 04/16/25] Exam Exam Patient is in no acute distress and is cooperative with the examination today. Breathing is nonlabored. In no respiratory distress. Bilateral extremities were evaluated and demonstrates sensation intact to light touch. Palpable pedal pulses are present. No significant edema is present. Bilateral hips were examined. The patient has no pain with log roll of the hips. Internal rotation to 30 degrees and external rotation to 30 degrees is painless. Negative FADIR. Left knee incision is c/d/i. Range of motion is 0 to 100 degrees Right knee demonstrates varus deformity. She has significant pain medially. Range of motion 0 to 110 degrees X-rays of the right knee demonstrates complete joint space narrowing and obliteration of the medial joint space. Osteophytes are present Assessment and Plan Problem List (1) Status post total left knee replacement: Status: Acute (2) Arthritis of knee, right: Status: Acute Plan: Patient is a 54-year-old female status post left total knee replacement is doing well. She is significant right knee pain and complete obliteration of the medial joint space and osteophytes. Given that she has failed conservative treatment including multiple injections and anti-inflammatories and home exercises, we consider total knee replacement as a reasonable option The nature and purpose of the total knee replacement, alternative method(s) of treatment, the material risks involved, and the possibility of complications were fully explained to the patient. The patient does NOT have any of the following contraindications to TKA: - Active infection of the knee joint, OR - Active systemic bacteremia, OR - Active skin infection or open wound at surgical site, OR - Neuropathic arthritis, OR - Severe, rapidly progressive neurological disease, OR - Severe medical condition that makes risks of surgery outweigh the potential benefit The patient was told the most common risks and complications associated with a total knee replacement include, but are not limited to: blood clots in the leg, fatal pulmonary embolism, dislocation of the prosthesis, intraoperative and postoperative fractures of the femur or tibia, infection, failure of the prosthesis or grafting materials, complications from anesthesia, reactions to blood transfusions, postoperative leg length inequality, instability of the knee replacement, nerve damage or injury, vascular injury, delayed wound healing, infection, other injury or even . In addition, there are risks associated with anesthesia given during this operation. Also, the patient was told that after undergoing a total knee replacement there may still be persistent pain or disability. The patient was informed that the success of this operation in part depends upon the mechanical devices which are going to be implanted and that these devices can fail or malfunction, and may need to be repaired or replaced and there are no guarantees as to the longevity of this device or its parts and that it or its parts could fail prematurely. The patient was also notified that during the course of surgery, there may be a need to use bone graft from donors, and that any bone graft used will be carefully screened for communicable diseases, including AIDS, hepatitis, Rosendo-Creutzfeldt, or other diseases, but despite the screening procedures, there is a small chance that they could contract one of these diseases. Finally, the patient was asked to follow completely and fully with all advice and recommended treatments, and that recovery and ultimate outcome are affected by their compliance with recommended treatment. We discussed the risks, benefits and treatment alternatives, and the patient is interested in proceeding with surgery. We will try to set this up as expeditiously as possible. Office Procedures GNS Level of Care Nursing/Assessment Patient Status: Established Patient Nursing Assessment/Reassesment: Medication Reconciliation, Orthostatic Vitals, Update PMH in EMR and Vital Signs Coordination of Care: Complex Care and Chronic Disease 1-5, Education Complex Pt/Fam, Consent,records obtained, informed consent, Results/Orders obtained and Staff clarify orders Special Needs: Language special needs Established Patient Charge Established Patient Point Assignment: 105 Established Patient Point Charge: Level 3 (80-115) MA Intake Visit Data Collection New Patient or Established: Established Patient (seen at [facility] within 3 years) Reason for Visit:: 7 WEEK F/U Seen by Clinical Staff ONLY (RN/MA): No Manager 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 Income Required: Yes PCP or OBGYN visit in last 3 months: Yes Hx Now: No Do You Feel Safe at Home: Yes Authorities Contacted: N/A Questionairres Past Medical History Past Medical History Have you ever been diagnosed with any of the following: Neurological Problems Seizures: No Cardiology Problems Hypercholesterolemia: Yes Congestive Heart Failure: No Edema: No Cellulitis: No Hypertension: Yes Varicose Veins: Yes Respiratory Problems Chronic Obstructive Pulmonary Disease (COPD): No Asthma: No Pneumonia: No Tuberculosis: No Sleep Apnea: No Smoking: No Smoking Exposure: No Stomache/Intestinal Problems Hepatitis: No Gall Bladder Disease: No Gastroesophageal Reflux Disease: Yes Genital/Urinary Problems Renal Disease: No Kidney Stones: Yes Reproductive Problems Previous Pregnancies: Yes Musculoskeletal Problems Arthritis: Yes Endocrine Problems Diabetes Mellitus Type 1: No Diabetes Mellitus Type 2: No Hypothyroidism: Yes Blood Problems Anemia: Yes Sickle Cell Disease: No Psychologic Problems Bipolar Disorder: No Depression: Yes Anxiety: Yes Depression: Yes Other Problems Hospitalization: No Shingles: No Falls: No Blood Transfusions: No Blood Transfusion Reaction: No Anesthesia Reactions: No Organ Transplant: No Chemotherapy: No Radiation Therapy: No Hyperbaric Therapy: No MRSA: No Chicken Pox: Yes Measles: No Mumps: No Clostridium Difficile: No Cancer: No Surgical History Hysterectomy: Yes Pacemaker: No Subjective Visit Visit for: follow up visit and knee Immunization / Flu Flu Vaccine in the Last 12 Months: Yes Flu Vaccine Exclusion Criteria: Already Received History of Present Illness Chief complaint: left knee pain Patient is a 54 yo female who is 6 weeks s/p L TKA. She is doing well She reports the right knee pain is significantly worse than the left at this point. She reports she is doing very well from the left knee replacement. She has failed significant conservative treatment on the right knee Pain Pain level (0-10): 4 Ambulatory data Ambulatory device: none Treatments Improvement with previous injections: No Improvement with PT: No Improvement with NSAIDS: no Review of Systems Review of Systems: All systems negative unless otherwise noted in HPI.
[2025-04-16 14:03] VITALS: BP 117/77; PULSE 60; RESP 18; TEMP 36.4; O2SAT 96; BMI 29.0
--- NOTE | 2025-04-16 14:28 | XR_ITS ---
Examination: Bilateral AP knees standing single view Left knee PA lateral axial 3 views Date and time: April 16, 2025 1458 hours INDICATIONS: Right knee pain 6 months, history left knee surgery 2 months ago FINDINGS: Severe narrowing [id number] medial joint space right knee No fracture Total left knee arthroplasty. Satisfactory alignment No loosening of the prosthetic components No patellar dislocation IMPRESSION:: Severe narrowing [id number] medial joint space right knee
== END 2025-04-16 14:31 | disposition home or self-care (01) ==
PROVIDERS: PCP Nurse Practitioner Family; Referring Provider Nurse Practitioner Family; Supervising Provider Orthopaedic Surgery Adult Reconstructive Orthopaedic Surgery; Visit Provider Orthopaedic Surgery Adult Reconstructive Orthopaedic Surgery
DX: Z96.652 Presence of left artificial knee joint (principal); M17.11 Unilateral primary osteoarthritis, right knee; M25.561 Pain in right knee; M25.761 Osteophyte, right knee; I10 Essential (primary) hypertension; E78.00 Pure hypercholesterolemia, unspecified; K21.9 Gastro-esophageal reflux disease without esophagitis; E03.9 Hypothyroidism, unspecified
CPT/HCPCS: 73564; 99213; G0463

== ENCOUNTER 2025-04-25 16:30 | Outpatient (RCR) | payer MEDICAID, SELFPAY ==
--- NOTE | 2025-04-16 13:08 | PTNOTE_ITS ---
PT OP Initial Eval Patient Information Outpatient Physical Therapy Treatment Date: 04/16/25 Visit Reasons: Post op left tka Medical Diagnosis: M17.12 Treatment Dx #1: L knee pain Treatment Dx #2: Dec L knee ROM Start of Care: 04/16/25 Date of Onset: 02/25/25 DOS Smoking Status Smoking Status: Never smoker Initial Assessment Subjective: Pt is 54 yr old uzbek speaking female s/p L TKA. Pt reports L knee pain and difficulty walking and she is using the walker. This limits HH chore tolerance. PMH: hypothyroidism Pt goal: walk better and bend the knee more Objective: L knee AROM: Flexion: 90 deg Extension : full SLR: 90 deg Strength: 4-/5 quads and HS Gait: antalgic, slow Assessment: Pt presentation consistent with post op TKA with decreased ROM, strength ? and WB tolerance.Pt requires skilled therapy to improve ROM ? and strength and has good rehab potential. 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 Ind with HEP 2.? Improved knee ROM to full extension to 115 deg flexion 3.? Improved quad and hamstring strength to 4+/5 4.? Improved ambulatory tolerance to community distances with symmetrical gait pattern Treatment Plan 1. Manual therapy ? 2. Therex ? 3. Modalities as indicated, moist heat, ice, estim Frequency and Duration: 2-3x a week for 18 sessions plus the evaluation Certification Dates: 04/16/25 to 07/15/25 Procedure Charges OP PT Eval Mod Complex 30 minutes: Yes
--- NOTE | 2025-04-19 16:12 | PT.ODAYNRPT ---
PT Outpatient Daily Note OP Daily Note Outpatient Physical Therapy Treatment Date: 04/19/25 Visit Reasons: Post op left tka Subjective: Pt reports L knee is sore and achy. Objective: Please see flow sheet for ther ex list. Assessment: Poor activity tolerance due to high pain with interventions. Plan: Continue with POC. Length of Time (minutes) of Treatment: 30 Minutes Procedure Charges Therapeutic Exercise 30 minutes: Yes
--- NOTE | 2025-04-22 16:32 | PT.ODAYNRPT ---
PT Outpatient Daily Note OP Daily Note Outpatient Physical Therapy Treatment Date: 04/22/25 Visit Reasons: Post op left tka Subjective: Pt reports L knee is doing better but lately has been difficult time getting around due to L knee pain. Objective: Please see flow sheet for ther ex list. Assessment: Pt instructed on forward lunge exercise to work on knee flexion, pt limited with closed chain interventions due to R knee pain. Plan: Continue with POC. Length of Time (minutes) of Treatment: 30 Minutes Procedure Charges Therapeutic Exercise 30 minutes: Yes
--- NOTE | 2025-04-25 17:10 | PT.ODAYNRPT ---
PT Outpatient Daily Note OP Daily Note Outpatient Physical Therapy Treatment Date: 04/25/25 Visit Reasons: Post op left tka Subjective: Arrived with L knee pain, explains pain is aggravated with bending it Objective: See F/S for therex MT: PROM L knee x 7 min ROM: AROM knee flexion: 95 Post PROM - AROM flexion: 98 Assessment: Patient tolerated therex well, able to self correct after minimal verbal cues to correct form. Knee flexion limited due to pain. Plan: Continue with POC Length of Time (minutes) of Treatment: 30 Minutes Procedure Charges Therapeutic Exercise 30 minutes: Yes
== END 2025-04-28 23:59 | disposition home or self-care (01) ==
LOC: CPTX 16:30
PROVIDERS: PCP Orthopaedic Surgery Adult Reconstructive Orthopaedic Surgery; Referring Provider Orthopaedic Surgery Adult Reconstructive Orthopaedic Surgery; Visit Provider Orthopaedic Surgery Adult Reconstructive Orthopaedic Surgery
DX: M25.562 Pain in left knee (principal); R26.2 Difficulty in walking, not elsewhere classified; Z96.652 Presence of left artificial knee joint; M17.12 Unilateral primary osteoarthritis, left knee
CPT/HCPCS: 97110; 97162

== ENCOUNTER 2025-05-07 15:52 | Outpatient (RCR) | payer MEDICAID, SELFPAY ==
--- NOTE | 2025-05-07 17:18 | PT.ODAYNRPT ---
PT Outpatient Daily Note OP Daily Note Outpatient Physical Therapy Treatment Date: 05/07/25 Visit Reasons: post op tka Subjective: Pt states L knee is doing better than her Rt and is scheduled for Rt TKA on 06/19/25. Objective: See F/S for therex Lt knee flexion AROM: 100 degrees//104 degrees Assessment: Tolerated therex well with minimal pain to Lt knee. Lt knee flexion limited due to pain. Confirms she is compliant with HEP. Plan: Continue with POC Length of Time (minutes) of Treatment: 30 Minutes Procedure Charges Therapeutic Exercise 30 minutes: Yes
== END 2025-05-28 23:59 | disposition home or self-care (01) ==
LOC: CPTX 15:52
PROVIDERS: PCP Orthopaedic Surgery Adult Reconstructive Orthopaedic Surgery; Referring Provider Orthopaedic Surgery Adult Reconstructive Orthopaedic Surgery; Visit Provider Orthopaedic Surgery Adult Reconstructive Orthopaedic Surgery
DX: M25.562 Pain in left knee (principal); R26.2 Difficulty in walking, not elsewhere classified; Z96.652 Presence of left artificial knee joint
CPT/HCPCS: 97110

== ENCOUNTER 2025-05-14 13:01 | Outpatient (AMB) | payer MEDICAID, SELFPAY ==
--- NOTE | 2025-05-14 13:21 | PD.ORTHCLVIS ---
Vital signs 05/14/25 13:22 Height 1.6 m Height Method Measured Weight 74.049 kg Weight Measurement Method Standing Scale BMI 28.9 BP 123/79 Blood Pressure Source Automatic Cuff Blood Pressure Location Left Upper Arm Position Sitting Respiration 18 Pulse 64 Pulse Source Monitor Temp 97.6 F Temp Source Temporal Artery Scan Pulse Oximetry (%) 95 Oxygen Delivery Method Room Air Med/Allergies Allergies & Medications Allergies No Known Allergies Allergy (Verified 05/14/25 13:23) Medication Reconciliation levothyroxine 88 mcg tablet 88 mcg PO QDAY 10/11/18 [History Confirmed 05/14/25] omeprazole 20 mg capsule,delayed release 20 mg PO QDAY 04/27/22 [History Confirmed 05/14/25] clonazepam 0.5 mg tablet 0.5 mg PO TID 02/22/25 [History Confirmed 05/14/25] estradiol 2 mg tablet 2 mg PO DAILY 02/22/25 [History Confirmed 05/14/25] ibuprofen 800 mg tablet 800 mg PO Q12H PRN pain 02/22/25 [History Confirmed 05/14/25] sertraline 25 mg tablet (Zoloft) 25 mg PO QDAY 02/22/25 [History Confirmed 05/14/25] acetaminophen 500 mg tablet (Acetaminophen Extra Strength) 1,000 mg (2 x 500 mg) PO Q6H PRN pain #90 tabs 02/25/25 [Rx Confirmed 05/14/25] aspirin 81 mg tablet,delayed release 81 mg PO BID #60 tabs 02/25/25 [Rx Confirmed 05/14/25] doxycycline hyclate 100 mg tablet 100 mg PO BID #14 tabs 02/25/25 [Rx Confirmed 05/14/25] gabapentin 300 mg capsule 300 mg PO .qhs #30 caps 02/25/25 [Rx Confirmed 05/14/25] oxycodone 5 mg tablet 5 mg PO Q6H PRN pain #28 tabs 02/25/25 [Rx Confirmed 05/14/25] sennosides 8.6 mg-docusate sodium 50 mg tablet (Senna-S) 1 tab-cap PO QDAY #30 tabs 02/25/25 [Rx Confirmed 05/14/25] diphenhydramine HCl 25 mg tablet (Allergy (diphenhydramine)) 25 mg PO TID PRN itching #30 tabs 03/04/25 [Rx Confirmed 05/14/25] oxycodone 5 mg tablet 5 mg PO Q6H PRN pain #28 tabs 03/12/25 [Rx Confirmed 05/14/25] Exam Exam Patient is in no acute distress and is cooperative with the examination today. Breathing is nonlabored. In no respiratory distress. Bilateral extremities were evaluated and demonstrates sensation intact to light touch. Palpable pedal pulses are present. No significant edema is present. Bilateral hips were examined. The patient has no pain with log roll of the hips. Internal rotation to 30 degrees and external rotation to 30 degrees is painless. Negative FADIR. Left knee incision is c/d/i. Range of motion is 0 to 100 degrees Right knee demonstrates varus deformity. She has significant pain medially. Range of motion 0 to 110 degrees X-rays of the right knee demonstrates complete joint space narrowing and obliteration of the medial joint space. Osteophytes are present Assessment and Plan Problem List (1) Status post total left knee replacement: Status: Acute (2) Arthritis of knee, right: Status: Acute Plan: Patient is a 54-year-old female status post left total knee replacement is doing well. She is significant right knee pain and complete obliteration of the medial joint space and osteophytes. Given that she has failed conservative treatment including multiple injections and anti-inflammatories and home exercises, we consider total knee replacement as a reasonable option The nature and purpose of the total knee replacement, alternative method(s) of treatment, the material risks involved, and the possibility of complications were fully explained to the patient. The patient does NOT have any of the following contraindications to TKA: - Active infection of the knee joint, OR - Active systemic bacteremia, OR - Active skin infection or open wound at surgical site, OR - Neuropathic arthritis, OR - Severe, rapidly progressive neurological disease, OR - Severe medical condition that makes risks of surgery outweigh the potential benefit The patient was told the most common risks and complications associated with a total knee replacement include, but are not limited to: blood clots in the leg, fatal pulmonary embolism, dislocation of the prosthesis, intraoperative and postoperative fractures of the femur or tibia, infection, failure of the prosthesis or grafting materials, complications from anesthesia, reactions to blood transfusions, postoperative leg length inequality, instability of the knee replacement, nerve damage or injury, vascular injury, delayed wound healing, infection, other injury or even . In addition, there are risks associated with anesthesia given during this operation. Also, the patient was told that after undergoing a total knee replacement there may still be persistent pain or disability. The patient was informed that the success of this operation in part depends upon the mechanical devices which are going to be implanted and that these devices can fail or malfunction, and may need to be repaired or replaced and there are no guarantees as to the longevity of this device or its parts and that it or its parts could fail prematurely. The patient was also notified that during the course of surgery, there may be a need to use bone graft from donors, and that any bone graft used will be carefully screened for communicable diseases, including AIDS, hepatitis, Rosendo-Creutzfeldt, or other diseases, but despite the screening procedures, there is a small chance that they could contract one of these diseases. Finally, the patient was asked to follow completely and fully with all advice and recommended treatments, and that recovery and ultimate outcome are affected by their compliance with recommended treatment. We discussed the risks, benefits and treatment alternatives, and the patient is interested in proceeding with surgery. We will try to set this up as expeditiously as possible. Office Procedures GNS Level of Care Nursing/Assessment Patient Status: Established Patient Nursing Assessment/Reassesment: Medication Reconciliation, Update PMH in EMR and Vital Signs Coordination of Care: Complex Care and Chronic Disease 1-5, Education Complex Pt/Fam, Consent,records obtained, informed consent, Results/Orders obtained and Staff clarify orders Special Needs: Language special needs Established Patient Charge Established Patient Point Assignment: 95 Established Patient Point Charge: EP Level 3 (80-115) MA Intake Visit Data Collection New Patient or Established: Established Patient (seen at [facility] within 3 years) Reason for Visit:: PRE OP RIGHT TKA Seen by Clinical Staff ONLY (RN/MA): No [employer] 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 PCP or OBGYN visit in last 3 months: Yes Hx Now: No Do You Feel Safe at Home: Yes Authorities Contacted: N/A Questionairres Past Medical History Past Medical History Have you ever been diagnosed with any of the following: Neurological Problems Seizures: No Cardiology Problems Hypercholesterolemia: Yes Congestive Heart Failure: No Edema: No Cellulitis: No Hypertension: Yes Varicose Veins: Yes Respiratory Problems Chronic Obstructive Pulmonary Disease (COPD): No Asthma: No Pneumonia: No Tuberculosis: No Sleep Apnea: No Smoking: No Smoking Exposure: No Stomache/Intestinal Problems Hepatitis: No Gall Bladder Disease: No Gastroesophageal Reflux Disease: Yes Genital/Urinary Problems Renal Disease: No Kidney Stones: Yes Reproductive Problems Previous Pregnancies: Yes Musculoskeletal Problems Arthritis: Yes Endocrine Problems Diabetes Mellitus Type 1: No Diabetes Mellitus Type 2: No Hypothyroidism: Yes Blood Problems Anemia: Yes Sickle Cell Disease: No Psychologic Problems Bipolar Disorder: No Depression: Yes Anxiety: Yes Depression: Yes Other Problems Hospitalization: No Shingles: No Falls: No Blood Transfusions: No Blood Transfusion Reaction: No Anesthesia Reactions: No Organ Transplant: No Chemotherapy: No Radiation Therapy: No Hyperbaric Therapy: No MRSA: No Chicken Pox: Yes Measles: No Mumps: No Clostridium Difficile: No Cancer: No Surgical History Hysterectomy: Yes Pacemaker: No Subjective Visit Visit for: follow up visit and knee Immunization / Flu Flu Vaccine in the Last 12 Months: Yes Flu Vaccine Exclusion Criteria: Already Received History of Present Illness Chief complaint: PRE OP RIGHT KNEE TKA Patient is a 54 yo female who is 9 weeks s/p L TKA. She is doing well She reports the right knee pain is significantly worse than the left at this point. She reports she is doing very well from the left knee replacement. She has failed significant conservative treatment on the right knee Personal History Red flag PMH: none BMI Counceling provided: Yes Pain Pain level (0-10): 10 Pain location: anterior Pain quality: sharp Ambulatory data Ambulatory device: cane and none Treatments Improvement with previous injections: No Improvement with PT: No Improvement with NSAIDS: no Review of Systems Review of Systems: All systems negative unless otherwise noted in HPI.
[2025-05-14 13:22] VITALS: BP 123/79; PULSE 64; RESP 18; TEMP 36.4; O2SAT 95; BMI 28.9
== END 2025-05-14 13:51 | disposition home or self-care (01) ==
PROVIDERS: PCP Nurse Practitioner Family; Referring Provider Nurse Practitioner Family; Supervising Provider Orthopaedic Surgery Adult Reconstructive Orthopaedic Surgery; Visit Provider Orthopaedic Surgery Adult Reconstructive Orthopaedic Surgery
DX: Z96.652 Presence of left artificial knee joint (principal); M25.561 Pain in right knee; M25.761 Osteophyte, right knee; I10 Essential (primary) hypertension; E78.00 Pure hypercholesterolemia, unspecified; K21.9 Gastro-esophageal reflux disease without esophagitis; E03.9 Hypothyroidism, unspecified
CPT/HCPCS: 99213; G0463

== ENCOUNTER → 2025-05-14 | Outpatient (CLI) | payer MEDICAID, SELFPAY ==
--- NOTE | 2025-05-14 12:00 | XR_ITS ---
Examination: CT right lower extremity, without contrast. 2-D sagittal reconstructions. 2-D coronal reconstructions. 3-D reconstructions. Date and time of exam:May 14, 2025 1222 hours INDICATIONS: Diagnosis unilateral primary osteoarthritis right knee, right knee pain one year CTDI: vol (mGy):11.6 DLP: (mGycm):898 Technique: Multiple 1.25 mm axial sections of the right lower extremity without intravenous contrast have been obtained. 2-D sagittal and coronal reconstructions have been obtained. 3-D reconstructions have been obtained. Low dose protocols were performed. One or more of the following dose reduction techniques were used; automated exposure control, adjustment of the mA and/or KV according to patient size, use of iterative reconstruction technique. Findings: Moderate osteopenia. Mild to moderate narrowing right hip joint No right hip fracture or dislocation Advanced right knee tricompartment osteoarthritis Severe narrowing medial joint space right knee No fracture No patellar dislocation IMPRESSION: Advanced right knee tricompartment osteoarthritis
== END | disposition home or self-care (01) ==
LOC: CCTX 12:04
PROVIDERS: PCP Nurse Practitioner Family; Referring Provider Orthopaedic Surgery Adult Reconstructive Orthopaedic Surgery; Visit Provider Orthopaedic Surgery Adult Reconstructive Orthopaedic Surgery
DX: M17.11 Unilateral primary osteoarthritis, right knee (principal)
CPT/HCPCS: 73700

== ENCOUNTER 2025-05-20 08:35 | Day surgery (SDC) | payer MEDICAID, SELFPAY ==
[2025-05-15 10:47] LABS: Basophils # (Auto) 0.0 Thou/mm3 (0.0-0.2); Basophils % (Auto) 1 % (0-2.5); Eosinophils # (Auto) 0.1 Thou/mm3 (0.0-0.5); Eosinophils % (Auto) 3 % (0-10); Hematocrit 36.8 % (36.0-46.0); Hemoglobin 12.1 g/dL (12.0-16.0); Immature Granulocytes Auto 0.02 Thou/mm3 (0.00-0.00); Lymphocytes # (Auto) 1.9 Thou/mm3 (1.0-4.8); Lymphocytes % (Auto) 42 % (10-50); Mean Corpuscular HGB Conc 32.9 g/dl (31.0-37.0); Mean Corpuscular Hemoglobin 27.8 pg (25.0-35.0); Mean Corpuscular Volume 84 fL (80-100); Monocytes # (Auto) 0.4 Thou/mm3 (0.0-0.8); Monocytes % (Auto) 8 % (0-12); Neutrophils # (Auto) 2.0 Thou/mm3 (1.8-7.7); Neutrophils % (Auto) 46 % (37-80); Nucleated Red Blood Cell # 0.00 Thou/mm3 (0.00-0.00); Nucleated Red Blood Cell % 0 /100 WBC (0); Platelet Count 247 Thou/mm3 (140-440); RDW Standard Deviation 40.5 fL (36.4-46.3); Red Blood Count 4.36 Miln/mm3 (4.00-5.20); White Blood Count 4.4 Thou/mm3 (3.6-11.0)
[2025-05-15 10:53] LABS: Anion Gap 8 (7-16); BUN/Creatinine Ratio 13 Ratio (12-20); Blood Urea Nitrogen 8 mg/dL (9-23); Calcium 9.3 mg/dL (8.3-10.6); Carbon Dioxide 29.3 mMol/L (20.0-31.0); Chloride 105 mMol/L (98-107); Creatinine (Component) 0.6 mg/dL (0.6-1.3); Estimated Creatinine Clearance 100.2 mL/min (>60); Glucose 108 mg/dL (74-106); Osmolality,Calculated 282 (275-295); Potassium 4.4 mMol/L (3.4-5.1); Sodium 142 mMol/L (136-145); eGFR > 60 See Note
[2025-05-15 11:01] LABS: INR 1.0 (0.9-1.3); Partial Thromboplastin Time 26.5 Seconds (22.0-36.0); Prothrombin Time 10.8 Seconds (9.0-12.2)
[2025-05-20] VITALS (16 sets, daily range): BP systolic 110–148; BP diastolic 70–91; PULSE 68–98; RESP 13–20; TEMP 36.3–37.1; O2SAT 95–100; BMI 29.0; BMI 13.0
[2025-05-20] MEDS: RINGERS LACTATED 1000 ML 1,000 ML 20 ML IV (09:24)
[2025-05-20] MEDS: ACETAMINOPHEN 325 MG TABLET 650 MG PO (09:25)
[2025-05-20] MEDS: MELOXICAM 7.5 MG TABLET PO (09:25)
[2025-05-20] MEDS: PREGABALIN 75 MG CAPSULE PO (09:25)
--- NOTE | 2025-05-20 09:56 | SUR.PREOP ---
Patient expressed gratitude for prayer before their procedure.
--- NOTE | 2025-05-20 10:31 | PD.SUROPNT ---
Date of Procedure 05/20/25 Pre Op Diagnosis right knee osteoarthritis Post Op Diagnosis right knee osteoarthritis Procedure right total knee replacement bridget cementless Findings full thickness cartilage loss and ostoephytes Procedure Description Indication: The patient has a long history of right knee pain. X-rays show degenerative arthritis involving the knee. Over the past several years the patient has had increasing pain, progressive limitation in function. He has failed conservative measures including activity modification, physical therapy, injections, anti-inflammatories, and assistive devices. After a lengthy discussion of the risks and benefits, the patient presents now for total knee replacement. The nature and purpose of the total knee replacement, alternative method(s) of treatment, the material risks involved, and the possibility of complications were fully explained to the patient. The patient was told the most common risks and complications associated with a total knee replacement include, but are not limited to blood clots in the leg, fatal pulmonary embolism, dislocation of the prosthesis, intraoperative and postoperative fractures of the femur or tibia, infection, failure of the prosthesis or grafting materials, complications from anesthesia, reactions to blood transfusions, postoperative leg length inequality, instability of the knee replacement, nerve damage or injury, vascular injury, delayed wound healing, infections, other injury or even . In addition, there are risks associated with anesthesia given during this operation, temporary or permanent numbness on the skin lateral to the incision can be a complication unique to total knee surgery, and kneeling can be painful after knee replacement surgery. Also, the patient was told that after undergoing a total knee replacement there may still be pain or disability. We discussed with the patient that we will be using a robot-assisted technology. We discussed that there is a possibility of converting to manual instrumentation. The patient was informed that the success of this operation in part depends upon the mechanical devices which are going to be implanted and that these devices can fail or malfunction, and may need to be repaired or replaced and there are no guarantees as to the longevity of this device or its part and that it or its parts could fail prematurely. Finally, the patient was asked to follow completely and fully with all advice and recommended treatments, and that recovery and ultimate outcome are affected by their compliance with recommended treatment. Surgical technique: Patient was marked and consented in the pre-operative area. The patient was brought to the operating room and placed on the operating table in a supine position. Prior to positioning, a timeout procedure was performed between the surgeon, the anesthesiologist, and the nursing staff where the patient and the operative side were identified and confirmed. After adequate general anesthetic was obtained, the right lower extremity was prepped and draped in the usual sterile fashion. A weight based dose of Cefazolin were administered within 1 hour prior to incision. The robot was preregistered and calibrated before the incision. The extremity was exsanguinated with an esmarch badge and tourniquet inflated to 250mmHg. A midline incision was made. A median parapatellar arthrotomy was made. The patella was subluxed laterally. A medial release was performed to expose the medial tibia. His femoral and tibial pins were placed through an intra incisional manner for both cases. Every effort was made to ensure that the distalmost aspect of the pin was hung in the second cortex. The arrays were then tightened several times to ensure that it was fixed for the remainder of the case. Both femoral and tibial checkpoints were then placed. We then went through the registration process of the bone. We then assessed the knee deformity and attempted to correct it. We also used the robot to aid in judging laxity in both extension and flexion. Final based on laxity and alignment we changed the preoperative assessment to obtain proper proper implant positioning and to correct deformity. Attention was then placed to the tibia. We made a tibial cut using the robot ensuring that both the MCL and the patella tendon were protected with retractors. We then went to the femur and made the posterior cut followed by the anterior cut and the anterior chamfer. The bone was then removed and we made a distal femur cut and a posterior chamfer cut. We verified all cuts. A trial reduction was performed with a size 3 femoral component and a size 3 keeled tibial component. T The patella tracked centrally, and no lateral retinacular release was necessary. The trial implants were removed. The arrays, pins, and checkpoints were all removed. We performed a verification that all pins were removed. The cut bone surfaces were lavaged. A size 3 right femoral component, a size 3 keeled tibial component were impacted into position. The knee was felt to be well balanced in the sagittal and coronal plane. The final 2x10 mm cruciate-substituting articular insert was impacted into the tibial tray. The knee was brought out to full extension, flexed up to 120 degrees. It was stable to varus and valgus stress and appropriately balanced in flexion and extension. The wounds were copiously irrigated following deflation of tourniquet. The medial retinaculum was reapproximated with #1 vicryl and quill. The subcutaneous tissues were closed with 0 and 2-0 interrupted Vicryl. The skin was closed with 3-0 Monofilament V loc suture. A sterile dressing was applied. The patient was transferred to a bed and brought to recovery in stable condition. The patient tolerated the procedure well. There were no intraoperative complications. Sponge and needle counts were correct times 2. As the attending surgeon, Tamiko ontiveros I was present and performed the entire operation. Grafts/Implants Size 3 CR Femur Size 3 Tibia 10mm poly CS Anesthesia spinal Implants [employer] Pathology / specimen None Pathology comment: none Estimated Blood Loss 150 Condition Stable Disposition same day Surgeon Dano Rowley MD Surgical Staff Operation Date: 05/20/25 11:45 <No data on this case meets the specified criteria>
--- NOTE | 2025-05-20 10:32 | XR_ITS ---
Examination: Right knee 2 views TECHNIQUE: AP lateral right knee 2 views Date and time: May 20, 2025, 1244 hours INDICATIONS: Postop knee replacement FINDINGS: Total right knee arthroplasty. Satisfactory alignment. Moderate osteopenia. No acute fracture IMPRESSION: Total right knee arthroplasty with satisfactory alignment
--- NOTE | 2025-05-20 12:15 | SUR.PHASEI ---
1215 patient arrived to recovery resting comfortably in [facility], drowsy and talking with staff, breathing unlabored, vital signs stable, dressing intact to right knee; prineo, telfa, abd, webril, sotero wraps, no bleeding noted, bilateral dorsalis pedis pulses present when palpated, patient has good circulation to right lower extremity; skin color is normal for patient and warm to touch, post spinal anesthesia assessment via ice, patient has dermatome sensation at L1 groin, will monitor, report received from Dr. Singh and Susan ROY
[2025-05-20] MEDS: fentaNYL CIT INJ 50 mCg/ML AMP 2ML IVP (12:27)
[2025-05-20] MEDS: MIDAZOLAM INJ 1 MG/ML VIAL 2 ML IVP (12:33)
--- NOTE | 2025-05-20 12:46 | SUR.PHASEI ---
1246 verbal order read-back received from Dr. Singh for Oxycodone IR 5mg tab x1 for pain, will entered order in EMR and adminster per MD order
[2025-05-20] MEDS: oxyCODONE HCL 5 MG IR TAB PO (13:02)
--- NOTE | 2025-05-20 13:20 | SUR.PHASEII ---
1320 patients daughter and at bedside
--- NOTE | 2025-05-20 14:40 | SUR.PHASEII ---
1440 patient ate half a sandwich, and pudding tolerating well
--- NOTE | 2025-05-20 15:30 | SUR.PHASEII ---
1530 Patient cleared by physical therapist Matilde to proceed with discharge, awaitng for patients family to arrive
--- NOTE | 2025-05-20 16:02 | SUR.PHASEII ---
1602 Patient meets discharge criteria from recovery, awake and alert, breathing unlabored, vital signs stable, denies pain, dressing intact; no bleeding noted, voided during physical therapy, denies nausea, assisted with dressing into her clothing by this typewriter repairer, discharge instructions given to patient and patients with the assistance of the telephone music sound light technician [place] ID #[id number], signed discharge instructions. Patient given all her belongings prior to discharge, transported via wheelchair and left in a private vehicle.
--- NOTE | 2025-05-24 17:03 | PD.ANESPROG ---
Documentation for date of: 05/24/25 POST ANESTHESIA NOTE: Patient had spinal anesthesia and R adductor canal block for R TKA on 05/20/25. I just called and spoke with her on the phone via parts interpreter and she denied any problems from anesthesia. Mateus Singh MD Anesthesia Progress Note Progress Note Most recent Vital Signs: Last Vital Signs Temp 98.3 F 05/20/25 14:45 Pulse 98 05/20/25 15:30 Resp 20 05/20/25 15:30 BP 123/76 05/20/25 15:30 Pulse Ox 95 05/20/25 15:30
== END 2025-05-20 16:02 | disposition home or self-care (01) ==
LOC: S2EX 08:46
PROVIDERS: PCP Nurse Practitioner Family; Referring Provider Orthopaedic Surgery Adult Reconstructive Orthopaedic Surgery; Visit Provider Orthopaedic Surgery Adult Reconstructive Orthopaedic Surgery
PROC: (CPT 27447; principal; 2025-05-20 11:45)
DX: M17.11 Unilateral primary osteoarthritis, right knee (principal)
CPT/HCPCS: 27447; 20985; 36415; 73560; 80048; 85025; 85610; 85730; 97162; A4217; A4649; C1713; C1776; J0690; J1100; J2250; J2371; J2405; J2704; J2795; J3010; J3490; J7120; J7999; A4648; A9270

== ENCOUNTER 2025-05-30 09:58 | Outpatient (AMB) | payer MEDICAID, SELFPAY ==
[2025-05-30 10:23] VITALS: BP 125/80; PULSE 69; RESP 18; TEMP 36.7; O2SAT 97; BMI 30.2
--- NOTE | 2025-05-30 10:23 | PD.ORTHCLVIS ---
Vital signs 05/30/25 10:23 Height 1.57 m Height Method Stated Weight 74.616 kg Weight Measurement Method Standing Scale BMI 30.2 BP 125/80 Blood Pressure Source Automatic Cuff Blood Pressure Location Right Upper Arm Position Sitting Respiration 18 Pulse 69 Pulse Source Monitor Temp 98.1 F Temp Source Temporal Artery Scan Pulse Oximetry (%) 97 Oxygen Delivery Method Room Air Med/Allergies Allergies & Medications Allergies No Known Allergies Allergy (Verified 05/30/25 10:24) Medication Reconciliation levothyroxine 88 mcg tablet 88 mcg PO QDAY 10/11/18 [History Confirmed 05/30/25] omeprazole 20 mg capsule,delayed release 20 mg PO QDAY PRN heartburn 04/27/22 [History Confirmed 05/30/25] clonazepam 0.5 mg tablet 0.5 mg PO TID 02/22/25 [History Confirmed 05/30/25] estradiol 2 mg tablet 2 mg PO DAILY 02/22/25 [History Confirmed 05/30/25] ibuprofen 800 mg tablet 800 mg PO Q12H PRN pain 02/22/25 [History Confirmed 05/30/25] sertraline 25 mg tablet (Zoloft) 25 mg PO QDAY 02/22/25 [History Confirmed 05/30/25] acetaminophen 500 mg tablet (Acetaminophen Extra Strength) 1,000 mg (2 x 500 mg) PO Q6H PRN pain #90 tabs 02/25/25 [Rx Confirmed 05/30/25] acetaminophen 500 mg tablet (Acetaminophen Extra Strength) 1,000 mg (2 x 500 mg) PO Q6H PRN pain #90 tabs 05/20/25 [Rx Confirmed 05/30/25] acetaminophen 500 mg tablet (Acetaminophen Extra Strength) 1,000 mg (2 x 500 mg) PO Q6H PRN pain #90 tabs 05/20/25 [Rx Confirmed 05/30/25] aspirin 81 mg tablet,delayed release 81 mg PO BID #60 tabs 05/20/25 [Rx Confirmed 05/30/25] aspirin 81 mg tablet,delayed release 81 mg PO BID #60 tabs 05/20/25 [Rx Confirmed 05/30/25] doxycycline hyclate 100 mg tablet 100 mg PO BID #14 tabs 05/20/25 [Rx Confirmed 05/30/25] doxycycline hyclate 100 mg tablet 100 mg PO BID #14 tabs 05/20/25 [Rx Confirmed 05/30/25] gabapentin 300 mg capsule 300 mg PO .qhs #30 caps 05/20/25 [Rx Confirmed 05/30/25] gabapentin 300 mg capsule 300 mg PO .qhs #30 caps 05/20/25 [Rx Confirmed 05/30/25] oxycodone 5 mg tablet 5 mg PO Q6H PRN pain #28 tabs 05/20/25 [Rx Confirmed 05/30/25] oxycodone 5 mg tablet 5 mg PO Q6H PRN pain #28 tabs 05/20/25 [Rx Confirmed 05/30/25] sennosides 8.6 mg-docusate sodium 50 mg tablet (Senna-S) 1 tab-cap PO QDAY #30 tabs 05/20/25 [Rx Confirmed 05/30/25] sennosides 8.6 mg-docusate sodium 50 mg tablet (Senna-S) 1 tab-cap PO QDAY #30 tabs 05/20/25 [Rx Confirmed 05/30/25] oxycodone 5 mg tablet 5 mg PO Q6H PRN pain #28 tabs 05/28/25 [Rx Confirmed 05/30/25] Exam Exam Patient is in no acute distress and is cooperative with the examination today. Breathing is nonlabored. In no respiratory distress. Bilateral extremities were evaluated and demonstrates sensation intact to light touch. Palpable pedal pulses are present. No significant edema is present. Bilateral hips were examined. The patient has no pain with log roll of the hips. Internal rotation to 30 degrees and external rotation to 30 degrees is painless. Negative FADIR. Left knee incision is c/d/i. Range of motion is 0 to 100 degrees Right knee incision is clean dry intact. Range of motion is 0 to 100 degrees X-rays of the right knee demonstrates complete joint space narrowing and obliteration of the medial joint space. Osteophytes are present Assessment and Plan Problem List (1) Status post total left knee replacement: Status: Acute (2) Arthritis of knee, right: Status: Acute Plan: Patient is a 54-year-old female status post right total knee replacement is doing well. She is doing well and we will start her with outpatient physical therapy. Office Procedures GNS Level of Care Nursing/Assessment Patient Status: Established Patient Nursing Assessment/Reassesment: Medication Reconciliation, Update PMH in EMR and Vital Signs Coordination of Care: Complex Care and Chronic Disease 1-5, Education Complex Pt/Fam, Consent,records obtained, informed consent, 1 Ins Authorization, Lab and Imaging orders, Results/Orders obtained and Staff clarify orders Special Needs: Language special needs Established Patient Charge Established Patient Point Assignment: 125 Established Patient Point Charge: EP Level 4 (120-155) MA Intake Visit Data Collection New Patient or Established: Established Patient (seen at [facility] within 3 years) Reason for Visit:: 2 WEEK RT TKA POST OP Seen by Clinical Staff ONLY (RN/MA): No Verbal consent obtained for Telemed visit?: No Sk[employer] [place] End Required: Yes PCP or OBGYN visit in last 3 months: Yes Hx Now: No Do You Feel Safe at Home: Yes Authorities Contacted: N/A Questionairres Past Medical History Past Medical History Have you ever been diagnosed with any of the following: Neurological Problems Seizures: No Cardiology Problems Hypercholesterolemia: Yes Congestive Heart Failure: No Edema: No Cellulitis: No Hypertension: Yes Varicose Veins: Yes Respiratory Problems Chronic Obstructive Pulmonary Disease (COPD): No Asthma: No Pneumonia: No Tuberculosis: No Sleep Apnea: No Smoking: No Smoking Exposure: No Stomache/Intestinal Problems Hepatitis: No Gall Bladder Disease: No Gastroesophageal Reflux Disease: Yes Genital/Urinary Problems Renal Disease: No Kidney Stones: Yes Reproductive Problems Previous Pregnancies: Yes Musculoskeletal Problems Arthritis: Yes Endocrine Problems Diabetes Mellitus Type 1: No Diabetes Mellitus Type 2: No Hypothyroidism: Yes Blood Problems Anemia: Yes Sickle Cell Disease: No Psychologic Problems Bipolar Disorder: No Depression: Yes Anxiety: Yes Depression: Yes Other Problems Hospitalization: No Shingles: No Falls: No Blood Transfusions: No Blood Transfusion Reaction: No (n/a) Anesthesia Reactions: No Organ Transplant: No Chemotherapy: No Radiation Therapy: No Hyperbaric Therapy: No MRSA: No Chicken Pox: Yes Measles: No Mumps: No Clostridium Difficile: No Cancer: No Surgical History Hysterectomy: Yes Pacemaker: No Subjective Visit Visit for: post op #1 and knee Immunization / Flu Flu Vaccine in the Last 12 Months: No Flu Vaccine Exclusion Criteria: No Exclusion Criteria History of Present Illness Chief complaint: 2 WEEK RT TKA POST OP Patient is a 54 yo female who is 2 weeks s/p r TKA. She is doing well Personal History Occupation: DISABLED Red flag PMH: BMI BMI Counceling provided: Yes Pain Pain level (0-10): 2 Pain location: anterior Pain quality: sharp Ambulatory data Ambulatory device: walker Treatments Improvement with previous injections: No Improvement with PT: No Improvement with NSAIDS: no Review of Systems Review of Systems: All systems negative unless otherwise noted in HPI.
== END 2025-05-30 10:32 | disposition home or self-care (01) ==
PROVIDERS: PCP Nurse Practitioner Family; Referring Provider Nurse Practitioner Family; Supervising Provider Orthopaedic Surgery Adult Reconstructive Orthopaedic Surgery; Visit Provider Orthopaedic Surgery Adult Reconstructive Orthopaedic Surgery
DX: Z47.1 Aftercare following joint replacement surgery (principal); Z96.651 Presence of right artificial knee joint; I10 Essential (primary) hypertension
CPT/HCPCS: 99214; G0463

== ENCOUNTER 2025-07-11 08:14 | Outpatient (AMB) | payer MEDICAID, SELFPAY ==
--- NOTE | 2025-07-11 08:31 | ORTHONT_ITS ---
Vital signs 07/11/25 08:44 Height 1.57 m Height Method Measured Weight 73.936 kg Weight Measurement Method Standing Scale BMI 29.9 BP 114/76 Blood Pressure Source Automatic Cuff Blood Pressure Location Left Upper Arm Position Sitting Respiration 18 Pulse 65 Pulse Source Monitor Temp 97.8 F Temp Source Temporal Artery Scan Pulse Oximetry (%) 94 L Oxygen Delivery Method Room Air Med/Allergies Allergies & Medications Allergies No Known Allergies Allergy (Verified 07/11/25 08:44) Medication Reconciliation levothyroxine 88 mcg tablet 88 mcg PO QDAY 10/11/18 [History Confirmed 07/11/25] omeprazole 20 mg capsule,delayed release 20 mg PO QDAY PRN heartburn 04/27/22 [History Confirmed 07/11/25] clonazepam 0.5 mg tablet 0.5 mg PO TID 02/22/25 [History Confirmed 07/11/25] estradiol 2 mg tablet 2 mg PO DAILY 02/22/25 [History Confirmed 07/11/25] ibuprofen 800 mg tablet 800 mg PO Q12H PRN pain 02/22/25 [History Confirmed 07/11/25] sertraline 25 mg tablet (Zoloft) 25 mg PO QDAY 02/22/25 [History Confirmed 07/11/25] acetaminophen 500 mg tablet (Acetaminophen Extra Strength) 1,000 mg (2 x 500 mg) PO Q6H PRN pain #90 tabs 02/25/25 [Rx Confirmed 07/11/25] acetaminophen 500 mg tablet (Acetaminophen Extra Strength) 1,000 mg (2 x 500 mg) PO Q6H PRN pain #90 tabs 05/20/25 [Rx Confirmed 07/11/25] acetaminophen 500 mg tablet (Acetaminophen Extra Strength) 1,000 mg (2 x 500 mg) PO Q6H PRN pain #90 tabs 05/20/25 [Rx Confirmed 07/11/25] aspirin 81 mg tablet,delayed release 81 mg PO BID #60 tabs 05/20/25 [Rx Confirmed 07/11/25] aspirin 81 mg tablet,delayed release 81 mg PO BID #60 tabs 05/20/25 [Rx Confirmed 07/11/25] doxycycline hyclate 100 mg tablet 100 mg PO BID #14 tabs 05/20/25 [Rx Confirmed 07/11/25] doxycycline hyclate 100 mg tablet 100 mg PO BID #14 tabs 05/20/25 [Rx Confirmed 07/11/25] gabapentin 300 mg capsule 300 mg PO .qhs #30 caps 05/20/25 [Rx Confirmed 07/11/25] gabapentin 300 mg capsule 300 mg PO .qhs #30 caps 05/20/25 [Rx Confirmed 07/11/25] oxycodone 5 mg tablet 5 mg PO Q6H PRN pain #28 tabs 05/20/25 [Rx Confirmed 07/11/25] oxycodone 5 mg tablet 5 mg PO Q6H PRN pain #28 tabs 05/20/25 [Rx Confirmed 07/11/25] sennosides 8.6 mg-docusate sodium 50 mg tablet (Senna-S) 1 tab-cap PO QDAY #30 tabs 05/20/25 [Rx Confirmed 07/11/25] sennosides 8.6 mg-docusate sodium 50 mg tablet (Senna-S) 1 tab-cap PO QDAY #30 tabs 05/20/25 [Rx Confirmed 07/11/25] oxycodone 5 mg tablet 5 mg PO Q6H PRN pain #28 tabs 05/28/25 [Rx Confirmed 07/11/25] Exam Exam Patient is in no acute distress and is cooperative with the examination today. Breathing is nonlabored. In no respiratory distress. Bilateral extremities were evaluated and demonstrates sensation intact to light touch. Palpable pedal pulses are present. No significant edema is present. Bilateral hips were examined. The patient has no pain with log roll of the hips. Internal rotation to 30 degrees and external rotation to 30 degrees is painless. Negative FADIR. Left knee incision is c/d/i. Range of motion is 0 to 100 degrees Right knee incision is clean dry intact. Range of motion is 0 to 100 degrees Assessment and Plan Problem List (1) Status post total left knee replacement: Status: Acute (2) Arthritis of knee, right: Status: Acute Plan: Patient is a 54-year-old female status post right total knee replacement is doing well. She is doing well and we will start her with outpatient physical therapy as she has been late to start Office Procedures GNS Level of Care Nursing/Assessment Patient Status: Established Patient Nursing Assessment/Reassesment: Medication Reconciliation, Update PMH in EMR and Vital Signs Coordination of Care: Complex Care and Chronic Disease 1-5, Education Complex Pt/Fam, Consent,records obtained, informed consent, Results/Orders obtained and Staff clarify orders Special Needs: Language special needs Established Patient Charge Established Patient Point Assignment: 95 Established Patient Point Charge: EP Level 3 (80-115) MA Intake Visit Data Collection New Patient or Established: Established Patient (seen at [facility] within 3 years) Reason for Visit:: 6 WEEK POST OP RIGHT TKA Seen by Clinical Staff ONLY (RN/MA): No Whale Trainer Required: Yes PCP or OBGYN visit in last 3 months: Yes Hx Now: No Do You Feel Safe at Home: Yes Authorities Contacted: N/A Questionairres Past Medical History Past Medical History Have you ever been diagnosed with any of the following: Neurological Problems Seizures: No Cardiology Problems Hypercholesterolemia: Yes Congestive Heart Failure: No Edema: No Cellulitis: No Hypertension: Yes Varicose Veins: Yes Respiratory Problems Chronic Obstructive Pulmonary Disease (COPD): No Asthma: No Pneumonia: No Tuberculosis: No Sleep Apnea: No Smoking: No Smoking Exposure: No Stomache/Intestinal Problems Hepatitis: No Gall Bladder Disease: No Gastroesophageal Reflux Disease: Yes Genital/Urinary Problems Renal Disease: No Kidney Stones: Yes Reproductive Problems Previous Pregnancies: Yes Musculoskeletal Problems Arthritis: Yes Endocrine Problems Diabetes Mellitus Type 1: No Diabetes Mellitus Type 2: No Hypothyroidism: Yes Blood Problems Anemia: Yes Sickle Cell Disease: No Psychologic Problems Bipolar Disorder: No Depression: Yes Anxiety: Yes Depression: Yes Other Problems Hospitalization: No Shingles: No Falls: No Blood Transfusions: No Blood Transfusion Reaction: No (n/a) Anesthesia Reactions: No Organ Transplant: No Chemotherapy: No Radiation Therapy: No Hyperbaric Therapy: No MRSA: No Chicken Pox: Yes Measles: No Mumps: No Clostridium Difficile: No Cancer: No Surgical History Hysterectomy: Yes Pacemaker: No Subjective Visit Visit for: post op #1 and knee Immunization / Flu Flu Vaccine in the Last 12 Months: No Flu Vaccine Exclusion Criteria: No Exclusion Criteria History of Present Illness Chief complaint: 2 WEEK RT TKA POST OP Patient is a 54 yo female who is 6 weeks s/p r TKA. She is doing well. Personal History Occupation: DISABLED Red flag PMH: BMI BMI Counceling provided: Yes Pain Pain level (0-10): 2 Pain location: anterior Pain quality: sharp Ambulatory data Ambulatory device: walker Treatments Improvement with previous injections: No Improvement with PT: No Improvement with NSAIDS: no Review of Systems Review of Systems: All systems negative unless otherwise noted in HPI.
--- NOTE | 2025-07-11 08:31 | XR_ITS ---
EXAMINATION: Bilateral knees 2 views Right lateral knee left lateral knee 2 views Bilateral AP knees single view TECHNIQUE: Bilateral AP knees standing single view, bilateral PA knees standing single view flexion Standing right lateral knee left lateral knee 2 views Bilateral [place] single view total 5 views Date and time: July 11, 2025, 0843 hours INDICATIONS: Left knee replacement in February 25, 2025 right knee replacement 05/20/2025 FINDINGS: Total knee arthroplasties bilaterally. Satisfactory alignment. No loosening of the prosthetic components. No fractures No patellar dislocations IMPRESSION: Bilateral total knee arthroplasties with satisfactory alignment
[2025-07-11 08:44] VITALS: BP 114/76; PULSE 65; RESP 18; TEMP 36.6; O2SAT 94; BMI 29.9
== END 2025-07-11 08:50 | disposition home or self-care (01) ==
PROVIDERS: PCP Nurse Practitioner Family; Referring Provider Nurse Practitioner Family; Supervising Provider Orthopaedic Surgery Adult Reconstructive Orthopaedic Surgery; Visit Provider Orthopaedic Surgery Adult Reconstructive Orthopaedic Surgery
DX: Z09 Encounter for follow-up examination after completed treatment for conditions other than malignant neoplasm (principal); Z96.652 Presence of left artificial knee joint
CPT/HCPCS: 73564; 99213; G0463

== ENCOUNTER 2025-07-17 14:40 | Outpatient (RCR) | payer MEDICAID, SELFPAY ==
--- NOTE | 2025-07-17 15:08 | PT.OIERPT ---
PT OP Initial Eval Patient Information Outpatient Physical Therapy Treatment Date: 07/17/25 Visit Reasons: right TKA Medical Diagnosis: M17.0 Treatment Dx #1: R knee pain Treatment Dx #2: Dec R knee ROM Start of Care: 07/17/25 Date of Onset: 05/20/25 Smoking Status Smoking Status: Never smoker Initial Assessment Subjective: Pt is 55 yr old icelandic speaking female s/p R TKA. Pt reports R knee pain and difficulty walking and she is not using assistive device. This limits HH chore tolerance. PMH: hypothyroidism Pt goal: walk better and bend the knee more Objective: R knee AROM: Flexion: 102 deg Extension : -4 deg SLR: 90 deg Strength: 4-/5 quads and HS Gait: antalgic, slow Assessment: Pt presentation consistent with post op TKA with decreased ROM, strength ? and WB tolerance. Pt requires skilled therapy to improve ROM ? and strength and has good rehab potential. Short Term and Tableau Developer Goals 1.? Ind with HEP 2.? Improved knee ROM to full extension to 115 deg flexion 3.? Improved quad and hamstring strength to 4/5 4.? Improved ambulatory tolerance to community distances with symmetrical gait pattern Treatment Plan 1. Manual therapy ? 2. Therex ? 3. Modalities as indicated, moist heat, ice, estim Frequency and Duration: 2-3x a week for 18 visits Certification Dates: 07/17/25 to 10/15/25 Procedure Charges OP PT Eval Mod Complex 30 minutes: Yes
== END 2025-07-28 23:59 | disposition home or self-care (01) ==
LOC: CPTX 14:40
PROVIDERS: PCP Orthopaedic Surgery Adult Reconstructive Orthopaedic Surgery; Referring Provider Orthopaedic Surgery Adult Reconstructive Orthopaedic Surgery; Visit Provider Orthopaedic Surgery Adult Reconstructive Orthopaedic Surgery
DX: Z47.1 Aftercare following joint replacement surgery (principal); Z96.651 Presence of right artificial knee joint; M25.561 Pain in right knee; R26.2 Difficulty in walking, not elsewhere classified
CPT/HCPCS: 97162

== ENCOUNTER → 2025-07-22 | Outpatient (CLI) | payer OTHER, SELFPAY | END | disposition home or self-care (01) | PROVIDERS: PCP Nurse Practitioner Family; Referring Provider Nurse Practitioner Family; Visit Provider Student in an Organized Health Care Education/Training Program | DX: L02.212 Cutaneous abscess of back [any part, except buttock and flank] (principal); S21.209A Unspecified open wound of unspecified back wall of thorax without penetration into thoracic cavity, initial encounter; X58.XXXA Exposure to other specified factors, initial encounter; L72.0 Epidermal cyst; F41.9 Anxiety disorder, unspecified; E03.9 Hypothyroidism, unspecified; Z90.710 Acquired absence of both cervix and uterus; G62.9 Polyneuropathy, unspecified | CPT/HCPCS: 99213; G0463 ==

== ENCOUNTER → 2025-07-29 | Outpatient (CLI) | payer OTHER, SELFPAY | END | disposition home or self-care (01) | PROVIDERS: PCP Nurse Practitioner Family; Referring Provider Nurse Practitioner Family; Visit Provider Student in an Organized Health Care Education/Training Program | DX: L02.212 Cutaneous abscess of back [any part, except buttock and flank] (principal); S21.209A Unspecified open wound of unspecified back wall of thorax without penetration into thoracic cavity, initial encounter; X58.XXXA Exposure to other specified factors, initial encounter; F32.A Depression, unspecified; E03.9 Hypothyroidism, unspecified; F41.9 Anxiety disorder, unspecified; C76.3 Malignant neoplasm of pelvis; Z90.710 Acquired absence of both cervix and uterus; M19.91 Primary osteoarthritis, unspecified site; G62.9 Polyneuropathy, unspecified | CPT/HCPCS: 11402; A9270 ==

== ENCOUNTER → 2025-08-05 | Outpatient (CLI) | payer OTHER, SELFPAY | END | disposition home or self-care (01) | LOC: SWHD 09:12 | PROVIDERS: PCP Nurse Practitioner Family; Referring Provider Nurse Practitioner Family; Visit Provider Surgery | DX: L02.212 Cutaneous abscess of back [any part, except buttock and flank] (principal); S21.209A Unspecified open wound of unspecified back wall of thorax without penetration into thoracic cavity, initial encounter; X58.XXXA Exposure to other specified factors, initial encounter; L72.0 Epidermal cyst; F41.9 Anxiety disorder, unspecified; E03.9 Hypothyroidism, unspecified; Z90.710 Acquired absence of both cervix and uterus | CPT/HCPCS: 99213; A9270; G0463 ==

== ENCOUNTER → 2025-08-12 | Outpatient (CLI) | payer OTHER, SELFPAY | END | disposition home or self-care (01) | LOC: SWHD 09:26 | PROVIDERS: PCP Nurse Practitioner Family; Referring Provider Nurse Practitioner Family; Visit Provider Student in an Organized Health Care Education/Training Program | DX: L02.212 Cutaneous abscess of back [any part, except buttock and flank] (principal); S21.209A Unspecified open wound of unspecified back wall of thorax without penetration into thoracic cavity, initial encounter; X58.XXXA Exposure to other specified factors, initial encounter; L72.0 Epidermal cyst; F41.9 Anxiety disorder, unspecified; E03.9 Hypothyroidism, unspecified; Z90.710 Acquired absence of both cervix and uterus | CPT/HCPCS: 99212; A9270; G0463 ==

== ENCOUNTER 2025-08-19 08:30 | Outpatient (RCR) | payer OTHER, SELFPAY ==
--- NOTE | 2025-07-29 10:07 | PT.ODAYNRPT ---
PT Outpatient Daily Note OP Daily Note Outpatient Physical Therapy Treatment Date: 07/29/25 Visit Reasons: RT TKA Subjective: Same as time of evaluation Objective: See F/S for therex MT: PROM into flexion x7' Assessment: Improved PROM into flexion to 107 deg today with overpressure Plan: Improve R knee ROM Length of Time (minutes) of Treatment: 30 Minutes Procedure Charges Therapeutic Exercise 30 minutes: Yes
--- NOTE | 2025-07-31 09:03 | PT.ODAYNRPT ---
PT Outpatient Daily Note OP Daily Note Outpatient Physical Therapy Treatment Date: 07/31/25 Visit Reasons: RT TKA Subjective: The knee feels stiff in the morning Objective: See F/S for therex MT: PROM into flexion x7' Assessment: Improved PROM into flexion to 107 deg today with overpressure Plan: Improve R knee ROM Length of Time (minutes) of Treatment: 30 Minutes Procedure Charges Therapeutic Exercise 30 minutes: Yes
--- NOTE | 2025-08-05 09:37 | PT.ODAYNRPT ---
PT Outpatient Daily Note OP Daily Note Outpatient Physical Therapy Treatment Date: 08/05/25 Visit Reasons: RT TKA Subjective: The knee feels stiff in the morning Objective: See F/S for therex MT: PROM into flexion x7' Assessment: Improved PROM into flexion to about 110 deg today with overpressure Plan: Improve R knee ROM Length of Time (minutes) of Treatment: 30 Minutes Procedure Charges Therapeutic Exercise 30 minutes: Yes
--- NOTE | 2025-08-12 11:34 | PT.ODAYNRPT ---
PT Outpatient Daily Note OP Daily Note Outpatient Physical Therapy Treatment Date: 08/12/25 Visit Reasons: RT TKA Subjective: Slowly getting better Objective: See F/S for therex Assessment: Good strength with partial body weight squatting and lunging with R knee. Improved PROM into flexion to about 110 deg with overpressure last visit. Plan: Improve R knee ROM Length of Time (minutes) of Treatment: 30 Minutes Procedure Charges Therapeutic Exercise 30 minutes: Yes
--- NOTE | 2025-08-14 09:07 | PT.ODAYNRPT ---
PT Outpatient Daily Note OP Daily Note Outpatient Physical Therapy Treatment Date: 08/14/25 Visit Reasons: RT TKA Subjective: Pt reports knee is moving better but still sore and painful more so in the evening. Pt shared that she completes HEP and wakls 1-2 miles every other day. Objective: Please see flow sheet for ther ex list. Assessment: Pt able to relax during PROM allowing for increase motion. Plan: Continue with poC. Length of Time (minutes) of Treatment: 30 Minutes Procedure Charges Therapeutic Exercise 30 minutes: Yes
--- NOTE | 2025-08-19 10:51 | PT.ODAYNRPT ---
PT Outpatient Daily Note OP Daily Note Outpatient Physical Therapy Treatment Date: 08/19/25 Visit Reasons: RT TKA Subjective: Slowly getting better and bending the knee more Objective: See F/S for therex Assessment: Good strength with partial body weight squatting and lunging with R knee. Improved PROM into flexion to about 110 deg with overpressure last visit. Plan: Improve R knee ROM Length of Time (minutes) of Treatment: 30 Minutes Procedure Charges Therapeutic Exercise 30 minutes: Yes
== END 2025-08-28 23:59 | disposition home or self-care (01) ==
LOC: CPTX 08:30
PROVIDERS: PCP Orthopaedic Surgery Adult Reconstructive Orthopaedic Surgery; Referring Provider Orthopaedic Surgery Adult Reconstructive Orthopaedic Surgery; Visit Provider Orthopaedic Surgery Adult Reconstructive Orthopaedic Surgery
DX: Z47.1 Aftercare following joint replacement surgery (principal); Z96.651 Presence of right artificial knee joint; M25.561 Pain in right knee; R26.2 Difficulty in walking, not elsewhere classified
CPT/HCPCS: 97110

== ENCOUNTER → 2025-08-19 | Outpatient (CLI) | payer OTHER, SELFPAY | END | disposition home or self-care (01) | LOC: SWHD 09:15 | PROVIDERS: PCP Nurse Practitioner Family; Referring Provider Nurse Practitioner Family; Visit Provider Surgery | DX: L02.212 Cutaneous abscess of back [any part, except buttock and flank] (principal); S21.209A Unspecified open wound of unspecified back wall of thorax without penetration into thoracic cavity, initial encounter; X58.XXXA Exposure to other specified factors, initial encounter; L72.0 Epidermal cyst; F41.9 Anxiety disorder, unspecified; E03.9 Hypothyroidism, unspecified; Z90.710 Acquired absence of both cervix and uterus | CPT/HCPCS: 99212; A9270; G0463 ==

== ENCOUNTER 2025-08-20 09:14 | Outpatient (AMB) | payer MEDICAID, SELFPAY ==
--- NOTE | 2025-08-20 09:27 | PD.ORTHCLVIS ---
Vital signs 08/20/25 09:30 Height 1.57 m Height Method Measured Weight 73.51 kg Weight Measurement Method Standing Scale BMI 29.8 BP 108/67 Blood Pressure Source Automatic Cuff Blood Pressure Location Left Upper Arm Position Sitting Respiration 18 Pulse 64 Pulse Source Monitor Temp 97.5 F Temp Source Temporal Artery Scan Pulse Oximetry (%) 96 Oxygen Delivery Method Room Air Med/Allergies Allergies & Medications Allergies No Known Allergies Allergy (Verified 08/20/25 09:30) Medication Reconciliation levothyroxine 88 mcg tablet 88 mcg PO QDAY 10/11/18 [History Confirmed 08/20/25] omeprazole 20 mg capsule,delayed release 20 mg PO QDAY PRN heartburn 04/27/22 [History Confirmed 08/20/25] clonazepam 0.5 mg tablet 0.5 mg PO TID 02/22/25 [History Confirmed 08/20/25] estradiol 2 mg tablet 2 mg PO DAILY 02/22/25 [History Confirmed 08/20/25] ibuprofen 800 mg tablet 800 mg PO Q12H PRN pain 02/22/25 [History Confirmed 08/20/25] sertraline 25 mg tablet (Zoloft) 25 mg PO QDAY 02/22/25 [History Confirmed 08/20/25] acetaminophen 500 mg tablet (Acetaminophen Extra Strength) 1,000 mg (2 x 500 mg) PO Q6H PRN pain #90 tabs 02/25/25 [Rx Confirmed 08/20/25] acetaminophen 500 mg tablet (Acetaminophen Extra Strength) 1,000 mg (2 x 500 mg) PO Q6H PRN pain #90 tabs 05/20/25 [Rx Confirmed 08/20/25] acetaminophen 500 mg tablet (Acetaminophen Extra Strength) 1,000 mg (2 x 500 mg) PO Q6H PRN pain #90 tabs 05/20/25 [Rx Confirmed 08/20/25] aspirin 81 mg tablet,delayed release 81 mg PO BID #60 tabs 05/20/25 [Rx Confirmed 08/20/25] aspirin 81 mg tablet,delayed release 81 mg PO BID #60 tabs 05/20/25 [Rx Confirmed 08/20/25] doxycycline hyclate 100 mg tablet 100 mg PO BID #14 tabs 05/20/25 [Rx Confirmed 08/20/25] doxycycline hyclate 100 mg tablet 100 mg PO BID #14 tabs 05/20/25 [Rx Confirmed 08/20/25] gabapentin 300 mg capsule 300 mg PO .qhs #30 caps 05/20/25 [Rx Confirmed 08/20/25] gabapentin 300 mg capsule 300 mg PO .qhs #30 caps 05/20/25 [Rx Confirmed 08/20/25] oxycodone 5 mg tablet 5 mg PO Q6H PRN pain #28 tabs 05/20/25 [Rx Confirmed 08/20/25] oxycodone 5 mg tablet 5 mg PO Q6H PRN pain #28 tabs 05/20/25 [Rx Confirmed 08/20/25] sennosides 8.6 mg-docusate sodium 50 mg tablet (Senna-S) 1 tab-cap PO QDAY #30 tabs 05/20/25 [Rx Confirmed 08/20/25] sennosides 8.6 mg-docusate sodium 50 mg tablet (Senna-S) 1 tab-cap PO QDAY #30 tabs 05/20/25 [Rx Confirmed 08/20/25] oxycodone 5 mg tablet 5 mg PO Q6H PRN pain #28 tabs 05/28/25 [Rx Confirmed 08/20/25] Exam Exam Patient is in no acute distress and is cooperative with the examination today. Breathing is nonlabored. In no respiratory distress. Bilateral extremities were evaluated and demonstrates sensation intact to light touch. Palpable pedal pulses are present. No significant edema is present. Bilateral hips were examined. The patient has no pain with log roll of the hips. Internal rotation to 30 degrees and external rotation to 30 degrees is painless. Negative FADIR. Left knee incision is c/d/i. Range of motion is 0 to 100 degrees Right knee incision is clean dry intact. Range of motion is 0 to 100 degrees Xrays from 07/11/2025 demonstrates a cementless total knee replacement in good alignment position bilaterally Assessment and Plan Problem List (1) Status post total left knee replacement: Status: Acute (2) Arthritis of knee, right: Status: Acute Plan: Patient is a 54-year-old female status post right total knee replacement is doing well. She is doing well. She is currently in PT. Office Procedures GNS Level of Care Nursing/Assessment Patient Status: Established Patient Nursing Assessment/Reassesment: Medication Reconciliation, Update PMH in EMR and Vital Signs Coordination of Care: Complex Care and Chronic Disease 1-5, Education Complex Pt/Fam, Consent,records obtained, informed consent, Results/Orders obtained and Staff clarify orders Special Needs: Language special needs Established Patient Charge Established Patient Point Assignment: 95 Established Patient Point Charge: EP Level 3 (80-115) MA Intake Visit Data Collection New Patient or Established: Established Patient (seen at [facility] within 3 years) Reason for Visit:: 6 WEEK POST OP RIGHT TKA Seen by Clinical Staff ONLY (RN/MA): No Administrative Support Associate Required: Yes PCP or OBGYN visit in last 3 months: Yes Hx Now: No Do You Feel Safe at Home: Yes Authorities Contacted: N/A Questionairres Past Medical History Past Medical History Have you ever been diagnosed with any of the following: Neurological Problems Seizures: No Cardiology Problems Hypercholesterolemia: Yes Congestive Heart Failure: No Edema: No Cellulitis: No Hypertension: Yes Varicose Veins: Yes Respiratory Problems Chronic Obstructive Pulmonary Disease (COPD): No Asthma: No Pneumonia: No Tuberculosis: No Sleep Apnea: No Smoking: No Smoking Exposure: No Stomache/Intestinal Problems Hepatitis: No Gall Bladder Disease: No Gastroesophageal Reflux Disease: Yes Genital/Urinary Problems Renal Disease: No Kidney Stones: Yes Reproductive Problems Previous Pregnancies: Yes Musculoskeletal Problems Arthritis: Yes Endocrine Problems Diabetes Mellitus Type 1: No Diabetes Mellitus Type 2: No Hypothyroidism: Yes Blood Problems Anemia: Yes Sickle Cell Disease: No Psychologic Problems Bipolar Disorder: No Depression: Yes Anxiety: Yes Depression: Yes Other Problems Hospitalization: No Shingles: No Falls: No Blood Transfusions: No Blood Transfusion Reaction: No (n/a) Anesthesia Reactions: No Organ Transplant: No Chemotherapy: No Radiation Therapy: No Hyperbaric Therapy: No MRSA: No Chicken Pox: Yes Measles: No Mumps: No Clostridium Difficile: No Cancer: No Surgical History Hysterectomy: Yes Pacemaker: No Subjective Visit Visit for: follow up visit, post op #1 and knee Immunization / Flu Flu Vaccine in the Last 12 Months: No Flu Vaccine Exclusion Criteria: No Exclusion Criteria History of Present Illness Chief complaint: 2 WEEK RT TKA POST OP Patient is a 54 yo female who is 12 weeks s/p r TKA. She is doing well. Personal History Occupation: DISABLED Red flag PMH: BMI BMI Counceling provided: Yes Pain Pain level (0-10): 2 Pain location: anterior Pain quality: sharp Ambulatory data Ambulatory device: walker Treatments Improvement with previous injections: No Improvement with PT: No Improvement with NSAIDS: no Review of Systems Review of Systems: All systems negative unless otherwise noted in HPI.
[2025-08-20 09:30] VITALS: BP 108/67; PULSE 64; RESP 18; TEMP 36.4; O2SAT 96; BMI 29.8
== END 2025-08-20 09:37 | disposition home or self-care (01) ==
LOC: HODSRG 09:14
PROVIDERS: PCP Nurse Practitioner Family; Referring Provider Nurse Practitioner Family; Supervising Provider Orthopaedic Surgery Adult Reconstructive Orthopaedic Surgery; Visit Provider Orthopaedic Surgery Adult Reconstructive Orthopaedic Surgery
DX: Z47.1 Aftercare following joint replacement surgery (principal); Z96.651 Presence of right artificial knee joint; I10 Essential (primary) hypertension
CPT/HCPCS: 99213; G0463